=== PATIENT | male | born 1955 | race Hispanic/Latino ===

== ENCOUNTER 2016-08-30 15:37 | Inpatient (IN) | payer SELFPAY ==
[2016-08-30 16:19] LABS: Anion Gap 19 mmol/L; BUN/Creatinine Ratio 33.33; Blood Urea Nitrogen 30 mg/dL (9-20); Carbon Dioxide 25 mmol/L (22-30); Chloride 92.5 mmol/L (98-107); Glucose 124 mg/dL (75-100); Potassium 4.2 mmol/L (3.6-5.0); Sodium 132 mmol/L (137-145)
[2016-08-30 16:28] LABS: Hematocrit 40.7 % (35.5-45.6); Hemoglobin 13.9 gm/dl (11.8-15.2); Mean Corpuscular HGB Conc 34 % (32-34); Mean Corpuscular Hemoglobin 31 pg (28-32); Mean Corpuscular Volume 92 fl (84-94); Platelet Count 248 K/mm3 (140-440); Red Blood Count 4.41 M/mm3 (3.65-5.03); Red Cell Distribution Width 14.2 % (13.2-15.2)
[2016-08-30 16:41] LABS: White Blood Count 24.6 K/mm3 (4.5-11.0)
[2016-08-30 16:52] LABS: Bacteria,Urine 1+ /HPF (Negative); Bilirubin,Urine NEG (Negative); Blood,Urine NEG (Negative); Ketones,Urine NEG (Negative); Leukocyte Esterase,Urine NEG (Negative); Mucus,Urine 1+ /HPF; Nitrite,Urine NEG (Negative)
[2016-08-30] MEDS ORDERED: NACL 0.9% 1000 ML 1,000 ML IV ONE (17:42)
[2016-08-30] MEDS ORDERED: VANCOMYCIN/NS 1 GM/250 ML 1 GM/250 ML BAG IV ONE (17:42)
[2016-08-30 17:46] LABS: Blastocytes % (Manual) 0 %
[2016-08-30 17:47] LABS: Diff Status Complete; Eosinophils % (Manual) 0 % (0.0-4.3); Large Platelets Few; Platelet Estimate Consistent w Auto; RBC Morphology Normal
[2016-08-30] MEDS ORDERED: MORPHINE IV ONE (17:49)
--- NOTE | 2016-08-30 17:50 | Emergency Department Report ---
ED Lower Extremity HPI - General Chief Complaint: Extremity Injury, Lower Stated Complaint: POSS SPIDER BITE LEG Time Seen by Provider: 08/30/16 17:25 Source: patient Mode of arrival: Ambulatory Limitations: No Limitations - History of Present Illness Initial Comments: 61-year-old male with no past medical history presenting today because of left leg pain and swelling. Patient states that this started approximately 5 days ago. Thinks that there may have been a spider bite involved but did not see any. Initially was small spot on the left proximal lateral aspect of the knee and has now spread to redness going down his leg to his ankle and up his thigh as well as spontaneous drainage from the original site. Denies any fevers or chills. Has not seen a doctor in many years. Some difficulty ambulating due to the pain. No numbness or weakness - Related Data Home Medications Medication Instructions Recorded Confirmed Last Taken No Known Home Medications [No 08/30/16 08/30/16 Unknown Reported Home Medications] Allergies Allergy/AdvReac Type Severity Reaction Status Date / Time Sulfa (Sulfonamide Allergy Swelling Verified 08/30/16 15:44 Antibiotics) ED Review of Systems ROS: Stated complaint: POSS SPIDER BITE LEG Other details as noted in HPI Comment: All other systems reviewed and negative Constitutional: denies: chills, fever Respiratory: denies: cough Cardiovascular: denies: chest pain Gastrointestinal: denies: abdominal pain, vomiting Genitourinary: denies: dysuria Skin: rash Neurological: denies: headache Psychiatric: denies: anxiety ED Past Medical Hx - Past Medical History Previous Medical History?: Yes Additional medical history: heart murmur - Surgical History Past Surgical History?: No - Social History Smoking Status: Current Every Day Smoker Substance Use Type: Non Opiate Pain - Medications Home Medications: Home Medications Medication Instructions Recorded Confirmed Last Taken Type No Known Home Medications [No 08/30/16 08/30/16 Unknown History Reported Home Medications] ED Physical Exam - General Limitations: No Limitations General appearance: alert - Head Head exam: Present: atraumatic - ENT ENT exam: Present: normal exam - Respiratory Respiratory exam: Present: normal lung sounds bilaterally. Absent: respiratory distress - Cardiovascular Cardiovascular Exam: Present: regular rate, normal rhythm - GI/Abdominal GI/Abdominal exam: Present: soft. Absent: distended, tenderness - Extremities Exam Extremities exam: Present: tenderness, other (left leg shows diffuse erythema and warmth and tenderness around the knee with a small area of discharge just proximal and lateral to the knee, there is erythema and warmth going down the medial aspect of the leg to the ankle and up half way to the thigh, sensation is intact distally, capillary refill is less than 2 seconds, DP and PT pulse 2+ , is able to move the knee but has significant pain with ambulating) - Neurological Exam Neurological exam: Present: alert, oriented X3. Absent: motor sensory deficit - Psychiatric Psychiatric exam: Present: normal affect ED Course Vital Signs 08/30/16 08/30/16 08/30/16 15:45 17:15 17:40 Temperature 98.9 F 98.2 F Pulse Rate 100 H 85 Respiratory 18 18 15 Rate Blood Pressure 110/71 Blood Pressure 118/71 [Left] O2 Sat by Pulse 99 98 Oximetry 08/30/16 08/30/16 19:21 20:41 Temperature 98.2 F 98 F Pulse Rate 102 H 88 Respiratory 18 18 Rate Blood Pressure Blood Pressure 137/79 122/75 [Left] O2 Sat by Pulse 98 98 Oximetry - Consultations Consultation #1: 08/30/16 19:[address] Allison, orthopedic surgeon on-call, explained the presentation and exam and labs,'s states that he will evaluate the patient tomorrow inpatient Consultation #2: 08/30/16 19:[address] Chavez, will admit patient ED Lower Extremity MDM - Lab Data Result diagrams: 09/01/16 07:42 09/01/16 07:42 - Medical Decision Making Although the possibility of septic joint is considered, this appears to be more consistent with a given that the start of the infection was from a small nidus away from the knee joint and the patient is able to flex and extend the knee without severe pain. Orthopedic surgery was consulted and will see the patient tomorrow morning. Critical care attestation.: If time is entered above; I have spent that time in minutes in the direct care of this critically ill patient, excluding procedure time. ED Disposition Clinical Impression: Cellulitis and abscess of left leg Disposition: OP ADMITTED IP TO THIS HOSP Is pt being admited?: No Does the pt Need Aspirin: No Condition: Serious
[2016-08-30 18:29] LABS: INR 1.29 (0.87-1.13); Partial Thromboplastin Time 31.5 Sec. (24.2-36.6)
[2016-08-30] MEDS ORDERED: MAXIPIME/NS 2 GM/100 ML 2 GM/100 ML BAG IV ONE (18:50)
[2016-08-30] MEDS ORDERED: VANCOMYCIN PHARMACY TO DOSE IV SCH (23:00)
[2016-08-30] MEDS ORDERED: AMBIEN PO PRN (23:03)
[2016-08-30] MEDS ORDERED: MILK OF MAGNESIA PO PRN (23:03)
[2016-08-30] MEDS ORDERED: DULCOLAX PR PRN (23:03)
[2016-08-30] MEDS ORDERED: ZOFRAN IV PRN (23:03)
[2016-08-30] MEDS ORDERED: TYLENOL PO PRN (23:03)
--- NOTE | 2016-08-30 23:06 | Event Note ---
Date: 08/30/16 See H/p in reports L knee cellulitis
[2016-08-31] MEDS: UNASYN/NS 3 GM/100 ML 3 GM/100 ML BAG IV SCH ×4 (00:19→18:23)
--- NOTE | 2016-08-31 01:17 | History and Physical Report ---
CHIEF COMPLAINT: Left leg pain and left knee swelling and redness extending from the ankle to the mid thigh. HISTORY OF PRESENT ILLNESS: This is a 61-year-old male with no significant past medical history, comes in for left knee pain and left leg swelling from ankle up to the left mid thigh associated with redness. Low grade fever present. Appears to be a spiderbite. There is a small spot on the left lateral aspect of the knee. ____ spider bite. Spontaneous drainage from the original site. No fever, no chills. He has not seen a doctor in many years. PAST MEDICAL HISTORY: heart murmur. PAST SURGICAL HISTORY: None. SOCIAL HISTORY: Smokes about a pack a day. MEDICATION: Nonopioid pain medicines. FAMILY HISTORY: No significant family history. REVIEW OF SYSTEMS: Significant for; CONSTITUTIONAL: Low grade fever. No weight loss, no weight gain. HEENT: No sore throat. No postnasal drip. CARDIOVASCULAR AND RESPIRATORY: No shortness of breath, no chest pain, no palpitations. GASTROINTESTINAL: No nausea, no vomiting, no diarrhea. GENITOURINARY SYSTEM: No dysuria, no flank pain. MUSCULOSKELETAL: There is redness on the left knee extending up to the ankle and the mid thigh. There is a small drainage site on the lateral aspect of the left knee. SKIN: As mentioned in the description of the extremities. Redness and swelling of the left knee and left lower extremity from mid thigh to the left ankle. CENTRAL NERVOUS SYSTEM: No syncope, no seizures. PSYCHIATRIC: No depression. HEMATOLOGIC AND LYMPHATIC: No bruising, no lymphedema. A 14-point review of systems done. PHYSICAL EXAMINATION: GENERAL: Elderly male, cooperative during examination. VITAL SIGNS: Significant for temperature 98.2, pulse of 85, respirations of 15, blood pressure of 118/71. A well developed, well-nourished male. HEENT: No postnasal drip. No redness of the posterior pharynx. NECK: Supple, no lymphadenopathy, no thyromegaly. LUNGS: Clear to auscultation and percussion. Good air entry. CARDIOVASCULAR: S1, S2 heard. No gallop, no murmur, no rub. Apical impulse in left fifth intercostal space and midclavicular line. ABDOMEN: Soft and benign. No hepatosplenomegaly. No guarding, no rigidity. Hernial orifices are normal. EXTREMITIES: Good pedal pulses. No pedal edema. CENTRAL NERVOUS SYSTEM: Alert and oriented x 4, nonfocal exam. SKIN: Normal. Left lower extremity redness and swelling of the left lower extremity present extending from the mid thigh to the ankle. More redness in left knee ____. Nonfluctuant. Skin indurated. Small drainage site present. LABORATORY DATA: White count is 24,000, H and H is 13.9 and 40.7, sodium is 132, potassium is 4.2. C-reactive protein is 30.30. Urine is negative. ASSESSMENT AND PLAN: 1. Left knee cellulitis. The patient is started on IV vancomycin and IV Unasyn. Does not need drainage. Ortho surgeon consulted. The patient may need an MRI of the knee down the road. At this point, the impression is limited to the skin and subcutaneous tissue. No joint involvement. Orthopedic consult from Dr. Allison requested. Dilaudid and Zofran p.r.n. for pain. 2. Nicotine dependence. Nicotine patch ordered. 3. Deep venous thrombosis prophylaxis, Lovenox 40 mg subcutaneous daily ordered. JOB# [id number] VSMeek/EARLE
[2016-08-31] MEDS: VANCOMYCIN 750 MG in NACL 0.9% 250ML 250 ML IV SCH ×2 (07:11→19:20)
--- NOTE | 2016-08-31 07:11 | XRay Report ---
Left femur 2 views: History: Redness and warmth. Soft tissue infection. Findings: No periosteal reaction, lytic lesion, fracture or soft tissue calcification. Impression: No bony abnormality.
--- NOTE | 2016-08-31 07:12 | XRay Report ---
Left tibia fibula 2 views: History: Redness warmth and soft tissue infection. Findings: No periosteal reaction, lytic lesion fracture or soft tissue calcification. Impression: No bony abnormality.
--- NOTE | 2016-08-31 07:30 | Admit Criteria Form ---
Admission Criteria Documentation: CELLULITIS Clinical Indications for Admission to Inpatient Care (Place 'X' for any and all applicable criteria): Admission is indicated for ANY ONE of the following(1)(2)(3)(4)(5): [ ]I. Limb-threatening infection [ ]II. High-risk comorbid condition as indicated by ANY ONE of the following: [ ]a) Uncontrolled diabetes (eg, HbA1c greater than 10% (0.1)) [ ]b) Cirrhosis [ ]c) Neutropenia [ ]d) Asplenia [ ]e) Immunosuppression [ ]f) Symptomatic heart failure [ ]III. Failure of outpatient therapy as indicated by ALL of the following: [ ]a) Progression or no improvement after adequate trial (minimum of 48 hours, with longer period for stable lower extremity infection) [ ]b) Adequate antibiotic regimen as indicated by use of ANY ONE of the following: [ ]i) First-generation cephalosporin (e.g., cephalexin) [ ]ii) Antistaphylococcal penicillin (e.g., dicloxacillin) [ ]iii) Penicillin-allergic patient regimen (clindamycin, extended-spectrum fluoroquinolone, or doxycycline) [ ]iv) Resistant organism (eg, methicillin-resistant Staphylococcus aureus) regimen (6) [ ]c) Outpatient intravenous therapy regimen is not appropriate due to ANY ONE of the following. (7)(8)(9)(10): [ ]i) It was tried and was not successful (eg, progression of infection). [ ]ii) It is not available or cannot be arranged in a clinically appropriate time frame (e.g., the next day). [ ]iii) Clinical presentation (eg, acuity of infection, rapidity of progression, confirmed or suspected bacteremia) is judged to require ALL of the following: [ ]1) Immediate initiation of intravenous therapy ( eg, cannot wait for next day) [ ]2) Intensity of patient monitoring and observation (eg, vital sign measurement, checks for infection progression) that cannot be provided at other than inpatient level of care [ ]IV. Mental status changes [ ]V. Bacteremia [ ]. Hemodynamic instability [ ]VII. Suspected necrotizing soft tissue infection (e.g., gas in tissue)(11)( 12) [ ]VIII. Orbital infection (13)(14) [ ]IX. Associated surgical procedure (e.g., abscess drainage, debridement) not amenable to outpatient, emergency department, or observation care [ ]X. Cutaneous gangrene [ ]XI. High fever (temperature greater than 39.5 degrees C (103.1 degrees F) (oral)) not responsive to outpatient, emergency department, or observation care therapy [X ]XIII. Inpatient admission required rather than observation care (Also use Cellulitis: Observation Care as appropriate) because of ANY ONE of the following : [ ]a) Periorbital or perineal infection that is severe or worsening [ ]b) Severe pain requiring acute inpatient management [ ]c) IV fluid to replace significant ongoing (e.g., for over 24 hours) losses (greater than 3L/m2 per day) [ ]d) Compartment syndrome monitoring (17) [ ]e) Strict or protective (eg, laminar flow) isolation [ ]f) Urgent debridement or skin grafting [ ]g) Bone or joint debridement [ ]h) Immediate inpatient surgery [X ]i) Other condition, treatment or monitoring requiring inpatient admission Extended stay beyond goal length of stay may be needed for (1)(18): [ ]a) Necrotizing soft tissue infection or fasciitis [ ]b) Gram-negative infection [ ]c) Methicillin-resistant Staphylococcal aureus (MRSA) infection [ ]d) Peripheral venous insufficiency with cellulitis [ ]e) Extensive edema [ ]f) Sepsis or continued Hemodynamic instability [ ]g) Continued high fever or mental status change [ ]h) Bacteremia [ ]i) Active serious comorbid conditions ( eg, heart failure, renal insufficiency) The original [employer] [employer] content created by [employer] has been revised. The portions of the content which have been revised are identified through the use of italic text or in bold, and [facility] has neither reviewed nor approved the modified material. All other unmodified content is copyright [facility] [employer] Please see references footnoted in the original [facility] xiao qu [employer] you edition 2016 Admission Criteria Met: Yes
[2016-08-31 07:45] LABS: Basophils % (Auto) 0.4 % (0.0-1.8); Eosinophils % (Auto) 0.3 % (0.0-4.3); Hematocrit 38.6 % (35.5-45.6); Hemoglobin 13.1 gm/dl (11.8-15.2); Mean Corpuscular HGB Conc 34 % (32-34); Mean Corpuscular Hemoglobin 31 pg (28-32); Mean Corpuscular Volume 92 fl (84-94); Platelet Count 193 K/mm3 (140-440); Red Blood Count 4.18 M/mm3 (3.65-5.03); Red Cell Distribution Width 14.5 % (13.2-15.2); White Blood Count 15.8 K/mm3 (4.5-11.0)
[2016-08-31 08:12] LABS: Alanine Aminotransferase 27 units/L (7-56); Albumin 3.1 g/dL (3.9-5); Alkaline Phosphatase 70 units/L (35-129); Anion Gap 17 mmol/L; BUN/Creatinine Ratio 22.85; Blood Urea Nitrogen 16 mg/dL (9-20); Calcium 8.5 mg/dL (8.4-10.2); Carbon Dioxide 25 mmol/L (22-30); Chloride 100.8 mmol/L (98-107); Glucose 99 mg/dL (75-100); Potassium 4.1 mmol/L (3.6-5.0); Total Protein 6.1 g/dL (6.3-8.2)
[2016-08-31 08:24] LABS: Sodium 139 mmol/L (137-145)
--- NOTE | 2016-08-31 08:57 | Progress Note ---
Assessment and Plan Assessment and plan: Cellulitis left knee. May have been initiated by insect or spider bite, since patient felt something bite him in knee. Continue Unasyn and Vancomycin. Ortho following. Hyponatremia. Sodium was 132 on admission now up to 139. Start NS iv fluid Malnutrition. Consult Lace Finisher. BMI only 15.4 DVT Prophylaxis with Lovenox subcut Full code status History Interval history: left knee pain,redness Hospitalist Physical - Physical exam Narrative exam: Gen: Appearance: Not in acute distress, HEENT: Normocephalic, atraumatic Neck: supple, No JVD Lungs : Clear, no crackles, no wheeze Heart :S1-S2 regular, no murmurs, rubs or gallop Abdomen: soft, non tender, non-distended,normal bowel sounds Extremities: Erythema, tenderness over left knee, Neuro: Awake, alert, oriented 3, no focal neurological signs Psych: Normal mood - Constitutional Vitals: Temp Pulse Resp BP Pulse Ox 98.9 F 94 H 18 131/70 98 08/31/16 08:00 08/31/16 08:00 08/31/16 08:00 08/31/16 08:00 08/31/16 08:00 Results - Labs CBC & Chem 7: 08/31/16 07:29 08/31/16 07:29 Labs: Laboratory Last Values WBC 15.8 K/mm3 (4.5-11.0) H 08/31/16 07:29 RBC 4.18 M/mm3 (3.65-5.03) 08/31/16 07:29 Hgb 13.1 gm/dl (11.8-15.2) 08/31/16 07:29 Hct 38.6 % (35.5-45.6) 08/31/16 07:29 MCV 92 fl (84-94) 08/31/16 07:29 MCH 31 pg (28-32) 08/31/16 07:29 MCHC 34 % (32-34) 08/31/16 07:29 RDW 14.5 % (13.2-15.2) 08/31/16 07:29 Plt Count 193 K/mm3 (140-440) 08/31/16 07:29 Lymph % (Auto) 5.9 % (13.4-35.0) L 08/31/16 07:29 Duval % (Auto) 7.7 % (0.0-7.3) H 08/31/16 07:29 Eos % (Auto) 0.3 % (0.0-4.3) 08/31/16 07: Baso % (Auto) 0.4 % (0.0-1.8) 08/31/16 07:29 Lymph # 0.9 K/mm3 (1.2-5.4) L 08/31/16 07:29 Duval # 1.2 K/mm3 (0.0-0.8) H 08/31/16 07:29 Eos # 0.1 K/mm3 (0.0-0.4) 08/31/16 07: Baso # 0.1 K/mm3 (0.0-0.1) 08/31/16 07:29 Add Manual Diff Complete 08/30/16 15:52 Total Counted 100 08/30/16 15:52 Seg Neutrophils % 85.7 % (40.0-70.0) H 08/31/16 07:29 Seg Neuts % (Manual) 87.0 % (40.0-70.0) H 08/30/16 15:52 Band Neutrophils % 0 % 08/30/16 15:52 Lymphocytes % (Manual) 5.0 % (13.4-35.0) L 08/30/16 15:52 Reactive Lymphs % (Man) 0 % 08/30/16 15:52 Monocytes % (Manual) 8.0 % (0.0-7.3) H 08/30/16 15:52 Eosinophils % (Manual) 0 % (0.0-4.3) 08/30/16 15:52 Metamyelocytes % 0 % 08/30/16 15:52 Myelocytes % 0 % 08/30/16 15:52 Promyelocytes % 0 % 08/30/16 15:52 Blast Cells % 0 % 08/30/16 15:52 Nucleated RBC % Not Reportable 08/30/16 15:52 Seg Neutrophils # 13.5 K/mm3 (1.8-7.7) H 08/31/16 07:29 Seg Neutrophils # Man 21.4 K/mm3 (1.8-7.7) H 08/30/16 15:52 Band Neutrophils # 0.0 K/mm3 08/30/16 15:52 Lymphocytes # (Manual) 1.2 K/mm3 (1.2-5.4) 08/30/16 15:52 Abs React Lymphs (Man) 0.0 K/mm3 08/30/16 15:52 Monocytes # (Manual) 2.0 K/mm3 (0.0-0.8) H 08/30/16 15:52 Eosinophils # (Manual) 0.0 K/mm3 (0.0-0.4) 08/30/16 15:52 Basophils # (Manual) 0.0 K/mm3 (0.0-0.1) 08/30/16 15:52 Metamyelocytes # 0.0 K/mm3 08/30/16 15:52 Myelocytes # 0.0 K/mm3 08/30/16 15:52 Promyelocytes # 0.0 K/mm3 08/30/16 15:52 Blast Cells # 0.0 K/mm3 08/30/16 15:52 WBC Morphology Not Reportable 08/30/16 15:52 Hypersegmented Neuts Not Reportable 08/30/16 15:52 Hyposegmented Neuts Not Reportable 08/30/16 15:52 Hypogranular Neuts Not Reportable 08/30/16 15:52 Smudge Cells Not Reportable 08/30/16 15:52 Toxic Granulation Not Reportable 08/30/16 15:52 Toxic Vacuolation Not Reportable 08/30/16 15:52 Dohle Bodies Not Reportable 08/30/16 15:52 Pelger-Huet Anomaly Not Reportable 08/30/16 15:52 Yesy Rods Not Reportable 08/30/16 15:52 Platelet Estimate Consistent w auto 08/30/16 15:52 Clumped Platelets Not Reportable 08/30/16 15:52 Plt Clumps, EDTA Not Reportable 08/30/16 15:52 Large Platelets Few 08/30/16 15:52 Giant Platelets Not Reportable 08/30/16 15:52 Platelet Satelliting Not Reportable 08/30/16 15:52 Plt Morphology Comment Not Reportable 08/30/16 15:52 RBC Morphology Normal 08/30/16 15:52 Dimorphic RBCs Not Reportable 08/30/16 15:52 Polychromasia Not Reportable 08/30/16 15:52 Hypochromasia Not Reportable 08/30/16 15:52 Poikilocytosis Not Reportable 08/30/16 15:52 Anisocytosis Not Reportable 08/30/16 15:52 Microcytosis Not Reportable 08/30/16 15:52 Macrocytosis Not Reportable 08/30/16 15:52 Spherocytes Not Reportable 08/30/16 15:52 Pappenheimer Bodies Not Reportable 08/30/16 15:52 Sickle Cells Not Reportable 08/30/16 15:52 Target Cells Not Reportable 08/30/16 15:52 Tear Drop Cells Not Reportable 08/30/16 15:52 Ovalocytes Not Reportable 08/30/16 15:52 Helmet Cells Not Reportable 08/30/16 15:52 [place] Bodies Not Reportable 08/30/16 15:52 Wever Rings Not Reportable 08/30/16 15:52 Yolanda Cells Not Reportable 08/30/16 15:52 Bite Cells Not Reportable 08/30/16 15:52 Crenated Cell Not Reportable 08/30/16 15:52 Elliptocytes Not Reportable 08/30/16 15:52 Acanthocytes (Spur) Not Reportable 08/30/16 15:52 Rouleaux Not Reportable 08/30/16 15:52 Hemoglobin C Crystals Not Reportable 08/30/16 15:52 Schistocytes Not Reportable 08/30/16 15:52 Malaria parasites Not Reportable 08/30/16 15:52 ESR 13 mm/Hr (0-20) 08/30/16 17:56 Jose Bodies Not Reportable 08/30/16 15:52 Hem Pathologist Commnt No 08/30/16 15:52 PT 16.0 Sec. (12.2-14.9) H 08/30/16 17:56 INR 1.29 (0.87-1.13) H 08/30/16 17:56 APTT 31.5 Sec. (24.2-36.6) 08/30/16 17:56 Sodium 139 mmol/L (137-145) D 08/31/16 07:29 Potassium 4.1 mmol/L (3.6-5.0) 08/31/16 07:29 Chloride 100.8 mmol/L (98-107) 08/31/16 07:29 Carbon Dioxide 25 mmol/L (22-30) 08/31/16 07:29 Anion Gap 17 mmol/L 08/31/16 07:29 BUN 16 mg/dL (9-20) 08/31/16 07:29 Creatinine 0.7 mg/dL (0.8-1.5) L 08/31/16 07:29 Estimated GFR > 60 ml/min 08/31/16 07:29 BUN/Creatinine Ratio 22.85 % 08/31/16 07:29 Glucose 99 mg/dL (75-100) 08/31/16 07:29 Hemoglobin A1c 5.2 % (4-6) 08/30/16 23:44 Lactic Acid 1.80 mmol/L (0.7-2.0) 08/30/16 17:56 Calcium 8.5 mg/dL (8.4-10.2) 08/31/16 07:29 Total Bilirubin 0.50 mg/dL (0.1-1.2) 08/31/16 07:29 AST 30 units/L (5-40) 08/31/16 07:29 ALT 27 units/L (7-56) 08/31/16 07:29 Alkaline Phosphatase 70 units/L (35-129) 08/31/16 07:29 C-Reactive Protein 30.30 mg/dL (0.00-1.30) H 08/30/16 17:56 Total Protein 6.1 g/dL (6.3-8.2) L 08/31/16 07:29 Albumin 3.1 g/dL (3.9-5) L 08/31/16 07:29 Albumin/Globulin Ratio 1.0 % 08/31/16 07:29 Urine Color Mary (Yellow) 08/30/16 16:05 Urine Turbidity Clear (Clear) 08/30/16 16:05 Urine pH 5.0 (5.0-7.0) 08/30/16 16:05 Ur Specific [place] 1.024 (1.003-1.030) 08/30/16 16:05 Urine Protein 30 mg/dl mg/dL (Negative) 08/30/16 16:05 Urine Glucose (UA) Neg mg/dL (Negative) 08/30/16 16:05 Urine Ketones Neg mg/dL (Negative) 08/30/16 16:05 Urine Blood Neg (Negative) 08/30/16 16:05 Urine Nitrite Neg (Negative) 08/30/16 16:05 Urine Bilirubin Neg (Negative) 08/30/16 16:05 Urine Urobilinogen 2.0 mg/dL (<2.0) 08/30/16 16:05 Ur Leukocyte Esterase Neg (Negative) 08/30/16 16:05 Urine WBC (Auto) 3.0 /HPF (0.0-6.0) 08/30/16 16:05 Urine RBC (Auto) 2.0 /HPF (0.0-6.0) 08/30/16 16:05 U Epithel Cells (Auto) 1.0 /HPF (0-13.0) 08/30/16 16:05 Urine Bacteria (Auto) 1+ /HPF (Negative) 08/30/16 16:05 Urine Mucus 1+ /HPF 08/30/16 16:05
[2016-08-31] MEDS: HABITROL TD SCH (10:23)
[2016-08-31] MEDS: PEPCID PO SCH ×2 (10:23→21:00)
[2016-08-31] MEDS: DILAUDID IV PRN ×2 (10:34→20:55)
--- NOTE | 2016-08-31 11:09 | Consultation ---
History of Present Illness - HPI Consult date: 08/31/16 Consult reason: joint pain History of present illness: 61 y/o male with c/o left knee pain and swelling x 5 days, states believe bitten by spider recently able to weight bear but painful.... Medications and Allergies Allergies Allergy/AdvReac Type Severity Reaction Status Date / Time Sulfa (Sulfonamide Allergy Swelling Verified 08/30/16 15:44 Antibiotics) Home Medications Medication Instructions Recorded Confirmed Last Taken Type No Known Home Medications [No 08/30/16 08/30/16 Unknown History Reported Home Medications] Active Meds: Active Medications Acetaminophen (Tylenol) 650 mg PO Q4H PRN PRN Reason: Pain MILD(1-3)/Fever >100.5/PATTERSON Bisacodyl (Dulcolax) 10 mg MD QDAY PRN PRN Reason: Constipation unrelieved by MOM Enoxaparin Sodium (Lovenox) 40 mg SUB-Q QDAY@2200 COUNT INCLUDES THE [facility] Famotidine (Pepcid) 20 mg PO BID COUNT INCLUDES THE [facility] Last Admin: 08/31/16 10:23 Dose: 20 mg Hydromorphone HCl (Dilaudid) 1 mg IV Q3H PRN PRN Reason: Pain , Severe (7-10) Last Admin: 08/31/16 10:34 Dose: 1 mg Ampicillin Sodium/Sulbactam Sodium (Unasyn/Ns 3 Gm/100 Ml) 3 gm in 100 mls @ 100 mls/hr IV Q6HR COUNT INCLUDES THE [facility] PRN Reason: Protocol Last Admin: 08/31/16 06:11 Dose: 100 mls/hr Vancomycin HCl 750 mg/ Sodium (Chloride) 265 mls @ 176.667 mls/hr IV Q12H COUNT INCLUDES THE [facility] Last Admin: 08/31/16 07:11 Dose: 176.667 mls/hr Magnesium Hydroxide (Milk Of Magnesia) 30 ml PO Q4H PRN PRN Reason: Constipation Nicotine (Habitrol) 21 mg TD QDAY COUNT INCLUDES THE [facility] Last Admin: 08/31/16 10:23 Dose: 21 mg Ondansetron HCl (Zofran) 4 mg IV Q8H PRN PRN Reason: N/V unrelieved by Reglan Oxycodone/Acetaminophen (Percocet 5/325) 1 tab PO Q6H PRN PRN Reason: Pain, Moderate (4-6) Vancomycin HCl (Vancomycin Pharmacy To Dose) 1 each IV PKCONSULT GERHARD PRN Reason: Protocol Zolpidem Tartrate (Ambien) 5 mg PO QHS PRN PRN Reason: Insomnia Physical Examination - Physical exam Narrative exam: alert and awake oriented x 3 significant physical exam relates to the left lower extremity, here noted to have redness/erythema to distal thigh with small granulating wound over distal femur, good passive ROM at knee joint, no effusion noted Assessment and Plan Assessment - cellulitits left thigh doubt intra-articular involvement Recommendation- continue IVAB and observation
[2016-08-31] MEDS: PERCOCET 5/325 PO PRN (14:40)
[2016-08-31] MEDS: NACL 0.9% 1000 ML 1,000 ML IV SCH (18:24)
[2016-08-31] MEDS: LOVENOX SUB-Q SCH (21:00)
[2016-09-01] MEDS: UNASYN/NS 3 GM/100 ML 3 GM/100 ML BAG IV SCH ×4 (00:57→17:03)
[2016-09-01] MEDS: DILAUDID IV PRN (06:21)
[2016-09-01 08:33] LABS: Blood Urea Nitrogen 10 mg/dL (9-20); Calcium 8.4 mg/dL (8.4-10.2); Carbon Dioxide 26 mmol/L (22-30); Glucose 103 mg/dL (75-100)
[2016-09-01 08:34] LABS: Anion Gap 17 mmol/L; Sodium 140 mmol/L (137-145)
[2016-09-01 08:38] LABS: Hemoglobin 12.8 gm/dl (11.8-15.2); Mean Corpuscular HGB Conc 34 % (32-34); Mean Corpuscular Hemoglobin 31 pg (28-32); Mean Corpuscular Volume 93 fl (84-94); Platelet Count 190 K/mm3 (140-440); Red Blood Count 4.09 M/mm3 (3.65-5.03); Red Cell Distribution Width 14.2 % (13.2-15.2)
[2016-09-01] MEDS: VANCOMYCIN 750 MG in NACL 0.9% 250ML 250 ML IV SCH ×2 (08:45→17:02)
[2016-09-01] MEDS: HABITROL TD SCH (09:29)
[2016-09-01] MEDS: PEPCID PO SCH ×2 (09:30→21:42)
[2016-09-01] MEDS: PERCOCET 5/325 PO PRN ×2 (09:48→17:01)
--- NOTE | 2016-09-01 13:56 | Progress Note ---
Assessment and Plan Assessment and plan: 61 year old with no significant past medical hx except for Tobacco abuse, Presents to ER with left knee cellulitis * Cellulites left knee. May have been initiated by insect or spider bite, since patient felt something bite him in knee. Continue Unasyn and Vancomycin. Ortho noted, no intervention, wound packing in place ?drug abuse- spouse also admitted. * Hypovolemic Hyponatremia. Sodium was 132 on admission now up to 139. Continue fluids now resolved * Mild Malnutrition. Consult [place]. BMI only 15.4 * Tobacco abuse: Extensive counselling greater than 15 mins provided with * DVT Prophylaxis with Lovenox subcut * Full code status History Interval history: Patient seen and examined today and in no acute distress. Reports some improvement in the Knee. No new event reported by Nursing staff. Hospitalist Physical - Physical exam Narrative exam: VITAL SIGNS: Reviewed. GENERAL: The patient appeared well nourished and normally developed. Vital signs as documented. HEAD: No signs of head trauma. EYES: Pupils are equal. Extraocular motions intact. EARS: Hearing grossly intact. MOUTH: Oropharynx is normal. NECK: No adenopathy, no JVD. CHEST: Chest with clear breath sounds bilaterally. No wheezes, rales, or rhonchi. CARDIAC: Regular rate and rhythm. S1 and S2, without murmurs, gallops, or rubs. VASCULAR: No Edema. Peripheral pulses normal and equal in all extremities. ABDOMEN: Soft, without detectable tenderness. No sign of distention. No rebound or guarding, and no masses palpated. Bowel Sounds normal. MUSCULOSKELETAL: Good range of motion of all major joints. Left knee erythema treading to the thigh tender, no drainage. Extremities without clubbing, cyanosis or edema. NEUROLOGIC EXAM: Alert and oriented x 3. No focal sensory or strength deficits. Speech normal. Follows commands. PSYCHIATRIC: Mood normal. SKIN: left knee - Constitutional Vitals: Temp Pulse Resp BP Pulse Ox 98.4 F 93 H 19 140/75 98 09/01/16 07:00 09/01/16 07:00 09/01/16 07:00 09/01/16 07:00 09/01/16 07:00 Results - Labs CBC & Chem 7: 09/01/16 07:42 09/01/16 07:42 Labs: Laboratory Last Values WBC 14.0 K/mm3 (4.5-11.0) H 09/01/16 07:42 RBC 4.09 M/mm3 (3.65-5.03) 09/01/16 07:42 Hgb 12.8 gm/dl (11.8-15.2) 09/01/16 07:42 Hct 38.0 % (35.5-45.6) 09/01/16 07:42 MCV 93 fl (84-94) 09/01/16 07:42 MCH 31 pg (28-32) 09/01/16 07:42 MCHC 34 % (32-34) 09/01/16 07:42 RDW 14.2 % (13.2-15.2) 09/01/16 07:42 Plt Count 190 K/mm3 (140-440) 09/01/16 07:42 Lymph % (Auto) 5.9 % (13.4-35.0) L 08/31/16 07:29 [place] % (Auto) 7.7 % (0.0-7.3) H 08/31/16 07:29 Eos % (Auto) 0.3 % (0.0-4.3) 08/31/16 07:29 Baso % (Auto) 0.4 % (0.0-1.8) 08/31/16 07:29 Lymph # 0.9 K/mm3 (1.2-5.4) L 08/31/16 07:29 [place] # 1.2 K/mm3 (0.0-0.8) H 08/31/16 07:29 Eos # 0.1 K/mm3 (0.0-0.4) 08/31/16 07:29 Baso # 0.1 K/mm3 (0.0-0.1) 08/31/16 07:29 Add Manual Diff Complete 08/30/16 15:52 Total Counted 100 08/30/16 15:52 Seg Neutrophils % 85.7 % (40.0-70.0) H 08/31/16 07:29 Seg Neuts % (Manual) 87.0 % (40.0-70.0) H 08/30/16 15:52 Band Neutrophils % 0 % 08/30/16 15:52 Lymphocytes % (Manual) 5.0 % (13.4-35.0) L 08/30/16 15:52 Reactive Lymphs % (Man) 0 % 08/30/16 15:52 Monocytes % (Manual) 8.0 % (0.0-7.3) H 08/30/16 15:52 Eosinophils % (Manual) 0 % (0.0-4.3) 08/30/16 15:52 Metamyelocytes % 0 % 08/30/16 15:52 Myelocytes % 0 % 08/30/16 15:52 Promyelocytes % 0 % 08/30/16 15:52 Blast Cells % 0 % 08/30/16 15:52 Nucleated RBC % Not Reportable 08/30/16 15:52 Seg Neutrophils # 13.5 K/mm3 (1.8-7.7) H 08/31/16 07:29 Seg Neutrophils # Man 21.4 K/mm3 (1.8-7.7) H 08/30/16 15:52 Band Neutrophils # 0.0 K/mm3 08/30/16 15:52 Lymphocytes # (Manual) 1.2 K/mm3 (1.2-5.4) 08/30/16 15:52 Abs React Lymphs (Man) 0.0 K/mm3 08/30/16 15:52 Monocytes # (Manual) 2.0 K/mm3 (0.0-0.8) H 08/30/16 15:52 Eosinophils # (Manual) 0.0 K/mm3 (0.0-0.4) 08/30/16 15:52 Basophils # (Manual) 0.0 K/mm3 (0.0-0.1) 08/30/16 15:52 Metamyelocytes # 0.0 K/mm3 08/30/16 15:52 Myelocytes # 0.0 K/mm3 08/30/16 15:52 Promyelocytes # 0.0 K/mm3 08/30/16 15:52 Blast Cells # 0.0 K/mm3 08/30/16 15:52 WBC Morphology Not Reportable 08/30/16 15:52 Hypersegmented Neuts Not Reportable 08/30/16 15:52 Hyposegmented Neuts Not Reportable 08/30/16 15:52 Hypogranular Neuts Not Reportable 08/30/16 15:52 Smudge Cells Not Reportable 08/30/16 15:52 Toxic Granulation Not Reportable 08/30/16 15:52 Toxic Vacuolation Not Reportable 08/30/16 15:52 Dohle Bodies Not Reportable 08/30/16 15:52 Pelger-Huet Anomaly Not Reportable 08/30/16 15:52 Yesy Rods Not Reportable 08/30/16 15:52 Platelet Estimate Consistent w auto 08/30/16 15:52 Clumped Platelets Not Reportable 08/30/16 15:52 Plt Clumps, EDTA Not Reportable 08/30/16 15:52 Large Platelets Few 08/30/16 15:52 Giant Platelets Not Reportable 08/30/16 15:52 Platelet Satelliting Not Reportable 08/30/16 15:52 Plt Morphology Comment Not Reportable 08/30/16 15:52 RBC Morphology Normal 08/30/16 15:52 Dimorphic RBCs Not Reportable 08/30/16 15:52 Polychromasia Not Reportable 08/30/16 15:52 Hypochromasia Not Reportable 08/30/16 15:52 Poikilocytosis Not Reportable 08/30/16 15:52 Anisocytosis Not Reportable 08/30/16 15:52 Microcytosis Not Reportable 08/30/16 15:52 Macrocytosis Not Reportable 08/30/16 15:52 Spherocytes Not Reportable 08/30/16 15:52 Pappenheimer Bodies Not Reportable 08/30/16 15:52 Sickle Cells Not Reportable 08/30/16 15:52 Target Cells Not Reportable 08/30/16 15:52 Tear Drop Cells Not Reportable 08/30/16 15:52 Ovalocytes Not Reportable 08/30/16 15:52 Helmet Cells Not Reportable 08/30/16 15:52 Amaro-[place] Bodies Not Reportable 08/30/16 15:52 [place] Rings Not Reportable 08/30/16 15:52 Yolanda Cells Not Reportable 08/30/16 15:52 Bite Cells Not Reportable 08/30/16 15:52 Crenated Cell Not Reportable 08/30/16 15:52 Elliptocytes Not Reportable 08/30/16 15:52 Acanthocytes (Spur) Not Reportable 08/30/16 15:52 Rouleaux Not Reportable 08/30/16 15:52 Hemoglobin C Crystals Not Reportable 08/30/16 15:52 Schistocytes Not Reportable 08/30/16 15:52 Malaria parasites Not Reportable 08/30/16 15:52 ESR 13 mm/Hr (0-20) 08/30/16 17:56 Jose Bodies Not Reportable 08/30/16 15:52 Hem Pathologist Commnt No 08/30/16 15:52 PT 16.0 Sec. (12.2-14.9) H 08/30/16 17:56 INR 1.29 (0.87-1.13) H 08/30/16 17:56 APTT 31.5 Sec. (24.2-36.6) 08/30/16 17:56 Sodium 140 mmol/L (137-145) 09/01/16 07:42 Potassium 4.0 mmol/L (3.6-5.0) 09/01/16 07:42 Chloride 101.0 mmol/L (98-107) 09/01/16 07:42 Carbon Dioxide 26 mmol/L (22-30) 09/01/16 07:42 Anion Gap 17 mmol/L 09/01/16 07:42 BUN 10 mg/dL (9-20) 09/01/16 07:42 Creatinine 0.5 mg/dL (0.8-1.5) L 09/01/16 07:42 Estimated GFR > 60 ml/min 09/01/16 07:42 BUN/Creatinine Ratio 20.00 % 09/01/16 07:42 Glucose 103 mg/dL (75-100) H 09/01/16 07:42 Hemoglobin A1c 5.2 % (4-6) 08/30/16 23:44 Lactic Acid 1.80 mmol/L (0.7-2.0) 08/30/16 17:56 Calcium 8.4 mg/dL (8.4-10.2) 09/01/16 07:42 Total Bilirubin 0.50 mg/dL (0.1-1.2) 08/31/16 07:29 AST 30 units/L (5-40) 08/31/16 07:29 ALT 27 units/L (7-56) 08/31/16 07:29 Alkaline Phosphatase 70 units/L (35-129) 08/31/16 07:29 C-Reactive Protein 30.30 mg/dL (0.00-1.30) H 08/30/16 17:56 Total Protein 6.1 g/dL (6.3-8.2) L 08/31/16 07:29 Albumin 3.1 g/dL (3.9-5) L 08/31/16 07:29 Albumin/Globulin Ratio 1.0 % 08/31/16 07:29 Urine Color Mary (Yellow) 08/30/16 16:05 Urine Turbidity Clear (Clear) 08/30/16 16:05 Urine pH 5.0 (5.0-7.0) 08/30/16 16:05 Ur Specific [place] 1.024 (1.003-1.030) 08/30/16 16:05 Urine Protein 30 mg/dl mg/dL (Negative) 08/30/16 16:05 Urine Glucose (UA) Neg mg/dL (Negative) 08/30/16 16:05 Urine Ketones Neg mg/dL (Negative) 08/30/16 16:05 Urine Blood Neg (Negative) 08/30/16 16:05 Urine Nitrite Neg (Negative) 08/30/16 16:05 Urine Bilirubin Neg (Negative) 08/30/16 16:05 Urine Urobilinogen 2.0 mg/dL (<2.0) 08/30/16 16:05 Ur Leukocyte Esterase Neg (Negative) 08/30/16 16:05 Urine WBC (Auto) 3.0 /HPF (0.0-6.0) 08/30/16 16:05 Urine RBC (Auto) 2.0 /HPF (0.0-6.0) 08/30/16 16:05 U Epithel Cells (Auto) 1.0 /HPF (0-13.0) 08/30/16 16:05 Urine Bacteria (Auto) 1+ /HPF (Negative) 08/30/16 16:05 Urine Mucus 1+ /HPF 08/30/16 16:05
[2016-09-01] MEDS: NACL 0.9% 1000 ML 1,000 ML IV SCH (17:02)
[2016-09-01] MEDS: LOVENOX SUB-Q SCH (21:42)
[2016-09-02] MEDS: UNASYN/NS 3 GM/100 ML 3 GM/100 ML BAG IV SCH ×4 (01:24→17:55)
--- NOTE | 2016-09-02 08:03 | Progress Note ---
Assessment and Plan Assessment and plan: 61 year old with no significant past medical hx except for Tobacco abuse, Presents to ER with left knee cellulitis * Cellulites left knee possible septic bursitis. May have been initiated by insect or spider bite per pt. since patient felt something bite him in knee. Continue Unasyn and Vancomycin. Ortho noted, for surgical I and D today. We'll follow wound culture. continue IV abx, discuss with wound care about packing change. PAIN MANAGEMENT. * Hypovolemic Hyponatremia. Resolved. Sodium was 132 on admission. Continue IVF secondary to the cellulitis. * Mild Malnutrition. Consult Screening Unit Registered Nurse. BMI only 15.4 * Tobacco abuse: Extensive counselling greater than 15 mins provided with * DVT Prophylaxis with Lovenox subcut * Full code status History Interval history: Patient seen and examined today and in no acute distress.increased pain in knee last night, did not get restful sleep. No new event reported by Nursing staff. Hospitalist Physical - Physical exam Narrative exam: VITAL SIGNS: Reviewed. GENERAL: The patient appeared well nourished and normally developed. Vital signs as documented. HEAD: No signs of head trauma. EYES: Pupils are equal. Extraocular motions intact. EARS: Hearing grossly intact. MOUTH: Oropharynx is normal. NECK: No adenopathy, no JVD. CHEST: Chest with clear breath sounds bilaterally. No wheezes, rales, or rhonchi. CARDIAC: Regular rate and rhythm. S1 and S2, without murmurs, gallops, or rubs. VASCULAR: No Edema. Peripheral pulses normal and equal in all extremities. ABDOMEN: Soft, without detectable tenderness. No sign of distention. No rebound or guarding, and no masses palpated. Bowel Sounds normal. MUSCULOSKELETAL: Good range of motion of all major joints except left knee. steam drier tender . Left knee erythema within the skin marker made yesterday but more pronounced and much more fluctuance. Packing still in place.. Extremities without clubbing, cyanosis or edema. NEUROLOGIC EXAM: Alert and oriented x 3. No focal sensory or strength deficits. Speech normal. Follows commands. PSYCHIATRIC: Mood normal. SKIN: left knee - Constitutional Vitals: Temp Pulse Resp BP Pulse Ox 99.2 F 90 20 140/82 97 09/02/16 00:00 09/02/16 00:00 09/02/16 00:00 09/02/16 00:00 09/02/16 00:00 Results - Labs CBC & Chem 7: 09/01/16 07:42 09/01/16 07:42 Labs: Laboratory Last Values WBC 14.0 K/mm3 (4.5-11.0) H 09/01/16 07:42 RBC 4.09 M/mm3 (3.65-5.03) 09/01/16 07:42 Hgb 12.8 gm/dl (11.8-15.2) 09/01/16 07:42 Hct 38.0 % (35.5-45.6) 09/01/16 07:42 MCV 93 fl (84-94) 09/01/16 07:42 MCH 31 pg (28-32) 09/01/16 07:42 MCHC 34 % (32-34) 09/01/16 07:42 RDW 14.2 % (13.2-15.2) 09/01/16 07:42 Plt Count 190 K/mm3 (140-440) 09/01/16 07:42 Lymph % (Auto) 5.9 % (13.4-35.0) L 08/31/16 07:29 [place] % (Auto) 7.7 % (0.0-7.3) H 08/31/16 07:29 Eos % (Auto) 0.3 % (0.0-4.3) 08/31/16 07:29 Baso % (Auto) 0.4 % (0.0-1.8) 08/31/16 07:29 Lymph # 0.9 K/mm3 (1.2-5.4) L 08/31/16 07:29 [place] # 1.2 K/mm3 (0.0-0.8) H 08/31/16 07:29 Eos # 0.1 K/mm3 (0.0-0.4) 08/31/16 07:29 Baso # 0.1 K/mm3 (0.0-0.1) 08/31/16 07:29 Add Manual Diff Complete 08/30/16 15:52 Total Counted 100 08/30/16 15:52 Seg Neutrophils % 85.7 % (40.0-70.0) H 08/31/16 07:29 Seg Neuts % (Manual) 87.0 % (40.0-70.0) H 08/30/16 15:52 Band Neutrophils % 0 % 08/30/16 15:52 Lymphocytes % (Manual) 5.0 % (13.4-35.0) L 08/30/16 15:52 Reactive Lymphs % (Man) 0 % 08/30/16 15:52 Monocytes % (Manual) 8.0 % (0.0-7.3) H 08/30/16 15:52 Eosinophils % (Manual) 0 % (0.0-4.3) 08/30/16 15:52 Metamyelocytes % 0 % 08/30/16 15:52 Myelocytes % 0 % 08/30/16 15:52 Promyelocytes % 0 % 08/30/16 15:52 Blast Cells % 0 % 08/30/16 15:52 Nucleated RBC % Not Reportable 08/30/16 15:52 Seg Neutrophils # 13.5 K/mm3 (1.8-7.7) H 08/31/16 07:29 Seg Neutrophils # Man 21.4 K/mm3 (1.8-7.7) H 08/30/16 15:52 Band Neutrophils # 0.0 K/mm3 08/30/16 15:52 Lymphocytes # (Manual) 1.2 K/mm3 (1.2-5.4) 08/30/16 15:52 Abs React Lymphs (Man) 0.0 K/mm3 08/30/16 15:52 Monocytes # (Manual) 2.0 K/mm3 (0.0-0.8) H 08/30/16 15:52 Eosinophils # (Manual) 0.0 K/mm3 (0.0-0.4) 08/30/16 15:52 Basophils # (Manual) 0.0 K/mm3 (0.0-0.1) 08/30/16 15:52 Metamyelocytes # 0.0 K/mm3 08/30/16 15:52 Myelocytes # 0.0 K/mm3 08/30/16 15:52 Promyelocytes # 0.0 K/mm3 08/30/16 15:52 Blast Cells # 0.0 K/mm3 08/30/16 15:52 WBC Morphology Not Reportable 08/30/16 15:52 Hypersegmented Neuts Not Reportable 08/30/16 15:52 Hyposegmented Neuts Not Reportable 08/30/16 15:52 Hypogranular Neuts Not Reportable 08/30/16 15:52 Smudge Cells Not Reportable 08/30/16 15:52 Toxic Granulation Not Reportable 08/30/16 15:52 Toxic Vacuolation Not Reportable 08/30/16 15:52 Dohle Bodies Not Reportable 08/30/16 15:52 Pelger-Huet Anomaly Not Reportable 08/30/16 15:52 Yesy Rods Not Reportable 08/30/16 15:52 Platelet Estimate Consistent w auto 08/30/16 15:52 Clumped Platelets Not Reportable 08/30/16 15:52 Plt Clumps, EDTA Not Reportable 08/30/16 15:52 Large Platelets Few 08/30/16 15:52 Giant Platelets Not Reportable 08/30/16 15:52 Platelet Satelliting Not Reportable 08/30/16 15:52 Plt Morphology Comment Not Reportable 08/30/16 15:52 RBC Morphology Normal 08/30/16 15:52 Dimorphic RBCs Not Reportable 08/30/16 15:52 Polychromasia Not Reportable 08/30/16 15:52 Hypochromasia Not Reportable 08/30/16 15:52 Poikilocytosis Not Reportable 08/30/16 15:52 Anisocytosis Not Reportable 08/30/16 15:52 Microcytosis Not Reportable 08/30/16 15:52 Macrocytosis Not Reportable 08/30/16 15:52 Spherocytes Not Reportable 08/30/16 15:52 Pappenheimer Bodies Not Reportable 08/30/16 15:52 Sickle Cells Not Reportable 08/30/16 15:52 Target Cells Not Reportable 08/30/16 15:52 Tear Drop Cells Not Reportable 08/30/16 15:52 Ovalocytes Not Reportable 08/30/16 15:52 Helmet Cells Not Reportable 08/30/16 15:52 Amaro-[place] Bodies Not Reportable 08/30/16 15:52 [place] Rings Not Reportable 08/30/16 15:52 Range Cells Not Reportable 08/30/16 15:52 Bite Cells Not Reportable 08/30/16 15:52 Crenated Cell Not Reportable 08/30/16 15:52 Elliptocytes Not Reportable 08/30/16 15:52 Acanthocytes (Spur) Not Reportable 08/30/16 15:52 Rouleaux Not Reportable 08/30/16 15:52 Hemoglobin C Crystals Not Reportable 08/30/16 15:52 Schistocytes Not Reportable 08/30/16 15:52 Malaria parasites Not Reportable 08/30/16 15:52 ESR 13 mm/Hr (0-20) 08/30/16 17:56 Jose Bodies Not Reportable 08/30/16 15:52 Hem Pathologist Commnt No 08/30/16 15:52 PT 16.0 Sec. (12.2-14.9) H 08/30/16 17:56 INR 1.29 (0.87-1.13) H 08/30/16 17:56 APTT 31.5 Sec. (24.2-36.6) 08/30/16 17:56 Sodium 140 mmol/L (137-145) 09/01/16 07:42 Potassium 4.0 mmol/L (3.6-5.0) 09/01/16 07:42 Chloride 101.0 mmol/L (98-107) 09/01/16 07:42 Carbon Dioxide 26 mmol/L (22-30) 09/01/16 07:42 Anion Gap 17 mmol/L 09/01/16 07:42 BUN 10 mg/dL (9-20) 09/01/16 07:42 Creatinine 0.5 mg/dL (0.8-1.5) L 09/01/16 07:42 Estimated GFR > 60 ml/min 09/01/16 07:42 BUN/Creatinine Ratio 20.00 % 09/01/16 07:42 Glucose 103 mg/dL (75-100) H 09/01/16 07:42 Hemoglobin A1c 5.2 % (4-6) 08/30/16 23:44 Lactic Acid 1.80 mmol/L (0.7-2.0) 08/30/16 17:56 Calcium 8.4 mg/dL (8.4-10.2) 09/01/16 07:42 Total Bilirubin 0.50 mg/dL (0.1-1.2) 08/31/16 07:29 AST 30 units/L (5-40) 08/31/16 07:29 ALT 27 units/L (7-56) 08/31/16 07:29 Alkaline Phosphatase 70 units/L (35-129) 08/31/16 07:29 C-Reactive Protein 30.30 mg/dL (0.00-1.30) H 08/30/16 17:56 Total Protein 6.1 g/dL (6.3-8.2) L 08/31/16 07:29 Albumin 3.1 g/dL (3.9-5) L 08/31/16 07:29 Albumin/Globulin Ratio 1.0 % 08/31/16 07:29 Urine Color [place] (Yellow) 08/30/16 16:05 Urine Turbidity Clear (Clear) 08/30/16 16:05 Urine pH 5.0 (5.0-7.0) 08/30/16 16:05 Ur Specific [place] 1.024 (1.003-1.030) 08/30/16 16:05 Urine Protein 30 mg/dl mg/dL (Negative) 08/30/16 16:05 Urine Glucose (UA) Neg mg/dL (Negative) 08/30/16 16:05 Urine Ketones Neg mg/dL (Negative) 08/30/16 16:05 Urine Blood Neg (Negative) 08/30/16 16:05 Urine Nitrite Neg (Negative) 08/30/16 16:05 Urine Bilirubin Neg (Negative) 08/30/16 16:05 Urine Urobilinogen 2.0 mg/dL (<2.0) 08/30/16 16:05 Ur Leukocyte Esterase Neg (Negative) 08/30/16 16:05 Urine WBC (Auto) 3.0 /HPF (0.0-6.0) 08/30/16 16:05 Urine RBC (Auto) 2.0 /HPF (0.0-6.0) 08/30/16 16:05 U Epithel Cells (Auto) 1.0 /HPF (0-13.0) 08/30/16 16:05 Urine Bacteria (Auto) 1+ /HPF (Negative) 08/30/16 16:05 Urine Mucus 1+ /HPF 08/30/16 16:05
--- NOTE | 2016-09-02 08:50 | Progress Note ---
Assessment and Plan assessment - septic pre-patellar bursitis recommendations - will take to the OR for formal I&D today Subjective Date of service: 09/02/16 Interval history: c/o increasing pain and swelling left knee/thigh, states wound care nurse drained and packed wound recently Objective Vital signs: Vital Signs - 12hr 09/01/16 09/02/16 09/02/16 22:00 00:00 08:00 Temperature 99.2 F 98.9 F Pulse Rate [ 93 H Left Radial] Pulse Rate [ 90 90 Left] Respiratory 20 20 18 Rate Blood Pressure 140/82 137/83 [Left Arm] O2 Sat by Pulse 97 Oximetry Narrative Exam: Left knee - ++ erythema with circumscribed area along medial supracondylar border, tender to palpation, good passive ROM.... - Labs CBC & BMP: 09/01/16 07:42 09/01/16 07:42
[2016-09-02] MEDS: HABITROL TD SCH (09:25)
[2016-09-02] MEDS: PERCOCET 5/325 PO PRN ×2 (09:25→17:54)
[2016-09-02] MEDS: NACL 0.9% 1000 ML 1,000 ML IV SCH ×2 (11:00→17:54)
[2016-09-02] MEDS: PEPCID PO SCH ×2 (13:17→21:29)
[2016-09-02] MEDS: VANCOMYCIN 750 MG in NACL 0.9% 250ML 250 ML IV SCH ×2 (13:23→22:59)
[2016-09-02] MEDS ORDERED: XYLOCAINE MPF 2% ONE (14:40)
[2016-09-02] MEDS ORDERED: ZOFRAN ONE (14:40)
[2016-09-02] MEDS ORDERED: DILAUDID ONE (14:41)
[2016-09-02] MEDS ORDERED: DIPRIVAN 10 MG/ML IV ONE (14:41)
--- NOTE | 2016-09-02 14:43 | Anesthesia Day of Surgery ---
Anesthesia Day of Surgery - Day of Surgery Patient Examined: Yes Patient H&P Reviewed: Yes Patient is NPO: Yes
--- NOTE | 2016-09-02 14:43 | Anesthesia Consultation ---
Anesthesia Consult and Med Hx Date of service: 09/02/16 - Airway Anesthetic Teeth Evaluation: Good ROM Head & Neck: Adequate Mental/Hyoid Distance: Adequate Mallampati Class: Class II Intubation Access Assessment: Probably Good - Pulmonary Exam CTA: Yes - Cardiac Exam Cardiac Exam: RRR - Pre-Operative Health Status ASA Pre-Surgery Classification: ASA2 Proposed Anesthetic Plan: General - Pulmonary Hx Smoking: Yes - Cardiovascular System Hx Heart Murmur: Yes - Central Nervous System Hx Psychiatric Problems: No
[2016-09-02] MEDS ORDERED: NEOSPORIN GU IR ONE (14:58)
[2016-09-02] MEDS ORDERED: VERSED IV NR (15:00)
--- NOTE | 2016-09-02 16:07 | Procedure Note ---
Date of procedure: 09/02/16 Pre-op diagnosis: abscess left patella bursa Post-op diagnosis: same Procedure: Incision and drainage left patella bursa Indications A 61-year-old male with pain and swelling to the left distal thigh as a result of a spider bite patient originally came in for cellulitis placed on IV antibiotics however he developed increasing pain and drainage from the prepatellar area Procedure The patient was brought to the OR placed in the OR table in supine position following induction and intubation by anesthesia the patient's left lower extremity was prepped and draped in the usual sterile manner using digital palpation copious amounts of material was expressed from the wound cultures were taken and sent for aerobic and anaerobic studies. Next the wound was enlarged using a #10 blade the prepatellar bursa was irrigated copiously using normal saline solution care was taken to irrigate the full extent of the prepatellar bursa following this the wound was packed with iodoform gauze routine postoperative dressings were applied the patient tolerated the procedure there were no complications and he was sent to postanesthesia recovery in stable condition Anesthesia: ADRIEL Surgeon: THERON RADFORD Estimated blood loss: minimal Pathology: list (cultures sent for identification and sensitivity) Specimen disposition: to lab Condition: stable Disposition: PACU
--- NOTE | 2016-09-02 16:13 | Post Anesthesia Evaluation ---
- Post Anesthesia Evaluation Patient Participated: Yes Airway Patent: Yes Stable Respiratory Function: Yes Nausea/Vomiting: No Temp > 96.8F: Yes Pain Manageable: Yes Adequeate Hydration: Yes Anesthesia Complications: No Block Receding Appropriately: Not Applicable Patient on Ventilator: No
[2016-09-02] MEDS ORDERED: SODIUM CHLORIDE FLUSH SYRINGE 10 ML IV NR (17:00)
[2016-09-02] MEDS ORDERED: ZOFRAN IV ONE (18:59)
[2016-09-02] MEDS: MORPHINE IV PRN (21:25)
[2016-09-02] MEDS: LOVENOX SUB-Q SCH (21:28)
[2016-09-03] MEDS: UNASYN/NS 3 GM/100 ML 3 GM/100 ML BAG IV SCH ×4 (00:54→18:57)
[2016-09-03] MEDS: VANCOMYCIN 750 MG in NACL 0.9% 250ML 250 ML IV SCH ×3 (06:52→23:29)
[2016-09-03] MEDS: PERCOCET 5/325 PO PRN ×2 (07:03→13:02)
[2016-09-03] MEDS: PEPCID PO SCH ×2 (12:07→22:58)
[2016-09-03] MEDS: HABITROL TD SCH (12:07)
--- NOTE | 2016-09-03 12:36 | Progress Note ---
Assessment and Plan Assessment and plan: 61 year old with no significant past medical hx except for Tobacco abuse, Presents to ER with left knee cellulitis * Prepatellar bursitis -S/P I&D. Continue IV antibiotics. Cultures no growth at this time. wound culture still pending. Other input noted. * Cellulites left knee possible septic bursitis. May have been initiated by insect or spider bite per pt. s * Hypovolemic Hyponatremia. Resolved. Sodium was 132 on admission. Continue IVF secondary to the cellulitis. * Mild Malnutrition. Consult Retail Assistant Manager. BMI only 15.4 * Tobacco abuse: Extensive counselling greater than 15 mins provided with * DVT Prophylaxis with Lovenox subcut * Full code status History Interval history: Patient seen and examined today and in no acute distress. pain much improved post I/D. no new complaints. No adverse event reported by nursing staff. Hospitalist Physical - Physical exam Narrative exam: VITAL SIGNS: Reviewed. GENERAL: The patient appeared well nourished and normally developed. Vital signs as documented. HEAD: No signs of head trauma. EYES: Pupils are equal. Extraocular motions intact. EARS: Hearing grossly intact. MOUTH: Oropharynx is normal. NECK: No adenopathy, no JVD. CHEST: Chest with clear breath sounds bilaterally. No wheezes, rales, or rhonchi. CARDIAC: Regular rate and rhythm. S1 and S2, without murmurs, gallops, or rubs. VASCULAR: No Edema. Peripheral pulses normal and equal in all extremities. ABDOMEN: Soft, without detectable tenderness. No sign of distention. No rebound or guarding, and no masses palpated. Bowel Sounds normal. MUSCULOSKELETAL: Good range of motion of all major joints except left knee. MEAGAN bandage in place. Extremities without clubbing, cyanosis or edema. NEUROLOGIC EXAM: Alert and oriented x 3. No focal sensory or strength deficits. Speech normal. Follows commands. PSYCHIATRIC: Mood normal. SKIN: left knee - Constitutional Vitals: Temp Pulse Resp BP Pulse Ox 97.8 F 85 18 142/81 99 09/03/16 08:10 09/03/16 08:10 09/03/16 08:10 09/03/16 08:10 09/03/16 08:10 Results - Labs CBC & Chem 7: 09/01/16 07:42 09/01/16 07:42 Labs: Laboratory Last Values WBC 14.0 K/mm3 (4.5-11.0) H 09/01/16 07:42 RBC 4.09 M/mm3 (3.65-5.03) 09/01/16 07:42 Hgb 12.8 gm/dl (11.8-15.2) 09/01/16 07:42 Hct 38.0 % (35.5-45.6) 09/01/16 07:42 MCV 93 fl (84-94) 09/01/16 07:42 MCH 31 pg (28-32) 09/01/16 07:42 MCHC 34 % (32-34) 09/01/16 07:42 RDW 14.2 % (13.2-15.2) 09/01/16 07:42 Plt Count 190 K/mm3 (140-440) 09/01/16 07:42 Lymph % (Auto) 5.9 % (13.4-35.0) L 08/31/16 07:29 [place] % (Auto) 7.7 % (0.0-7.3) H 08/31/16 07:29 Eos % (Auto) 0.3 % (0.0-4.3) 08/31/16 07:29 Baso % (Auto) 0.4 % (0.0-1.8) 08/31/16 07:29 Lymph # 0.9 K/mm3 (1.2-5.4) L 08/31/16 07:29 [place] # 1.2 K/mm3 (0.0-0.8) H 08/31/16 07:29 Eos # 0.1 K/mm3 (0.0-0.4) 08/31/16 07:29 Baso # 0.1 K/mm3 (0.0-0.1) 08/31/16 07:29 Add Manual Diff Complete 08/30/16 15:52 Total Counted 100 08/30/16 15:52 Seg Neutrophils % 85.7 % (40.0-70.0) H 08/31/16 07:29 Seg Neuts % (Manual) 87.0 % (40.0-70.0) H 08/30/16 15:52 Band Neutrophils % 0 % 08/30/16 15:52 Lymphocytes % (Manual) 5.0 % (13.4-35.0) L 08/30/16 15:52 Reactive Lymphs % (Man) 0 % 08/30/16 15:52 Monocytes % (Manual) 8.0 % (0.0-7.3) H 08/30/16 15:52 Eosinophils % (Manual) 0 % (0.0-4.3) 08/30/16 15:52 Metamyelocytes % 0 % 08/30/16 15:52 Myelocytes % 0 % 08/30/16 15:52 Promyelocytes % 0 % 08/30/16 15:52 Blast Cells % 0 % 08/30/16 15:52 Nucleated RBC % Not Reportable 08/30/16 15:52 Seg Neutrophils # 13.5 K/mm3 (1.8-7.7) H 08/31/16 07:29 Seg Neutrophils # Man 21.4 K/mm3 (1.8-7.7) H 08/30/16 15:52 Band Neutrophils # 0.0 K/mm3 08/30/16 15:52 Lymphocytes # (Manual) 1.2 K/mm3 (1.2-5.4) 08/30/16 15:52 Abs React Lymphs (Man) 0.0 K/mm3 08/30/16 15:52 Monocytes # (Manual) 2.0 K/mm3 (0.0-0.8) H 08/30/16 15:52 Eosinophils # (Manual) 0.0 K/mm3 (0.0-0.4) 08/30/16 15:52 Basophils # (Manual) 0.0 K/mm3 (0.0-0.1) 08/30/16 15:52 Metamyelocytes # 0.0 K/mm3 08/30/16 15:52 Myelocytes # 0.0 K/mm3 08/30/16 15:52 Promyelocytes # 0.0 K/mm3 08/30/16 15:52 Blast Cells # 0.0 K/mm3 08/30/16 15:52 WBC Morphology Not Reportable 08/30/16 15:52 Hypersegmented Neuts Not Reportable 08/30/16 15:52 Hyposegmented Neuts Not Reportable 08/30/16 15:52 Hypogranular Neuts Not Reportable 08/30/16 15:52 Smudge Cells Not Reportable 08/30/16 15:52 Toxic Granulation Not Reportable 08/30/16 15:52 Toxic Vacuolation Not Reportable 08/30/16 15:52 Dohle Bodies Not Reportable 08/30/16 15:52 Pelger-Huet Anomaly Not Reportable 08/30/16 15:52 Yesy Rods Not Reportable 08/30/16 15:52 Platelet Estimate Consistent w auto 08/30/16 15:52 Clumped Platelets Not Reportable 08/30/16 15:52 Plt Clumps, EDTA Not Reportable 08/30/16 15:52 Large Platelets Few 08/30/16 15:52 Giant Platelets Not Reportable 08/30/16 15:52 Platelet Satelliting Not Reportable 08/30/16 15:52 Plt Morphology Comment Not Reportable 08/30/16 15:52 RBC Morphology Normal 08/30/16 15:52 Dimorphic RBCs Not Reportable 08/30/16 15:52 Polychromasia Not Reportable 08/30/16 15:52 Hypochromasia Not Reportable 08/30/16 15:52 Poikilocytosis Not Reportable 08/30/16 15:52 Anisocytosis Not Reportable 08/30/16 15:52 Microcytosis Not Reportable 08/30/16 15:52 Macrocytosis Not Reportable 08/30/16 15:52 Spherocytes Not Reportable 08/30/16 15:52 Pappenheimer Bodies Not Reportable 08/30/16 15:52 Sickle Cells Not Reportable 08/30/16 15:52 Target Cells Not Reportable 08/30/16 15:52 Tear Drop Cells Not Reportable 08/30/16 15:52 Ovalocytes Not Reportable 08/30/16 15:52 Helmet Cells Not Reportable 08/30/16 15:52 [place] Bodies Not Reportable 08/30/16 15:52 Dahlgren Rings Not Reportable 08/30/16 15:52 Yolanda Cells Not Reportable 08/30/16 15:52 Bite Cells Not Reportable 08/30/16 15:52 Crenated Cell Not Reportable 08/30/16 15:52 Elliptocytes Not Reportable 08/30/16 15:52 Acanthocytes (Spur) Not Reportable 08/30/16 15:52 Rouleaux Not Reportable 08/30/16 15:52 Hemoglobin C Crystals Not Reportable 08/30/16 15:52 Schistocytes Not Reportable 08/30/16 15:52 Malaria parasites Not Reportable 08/30/16 15:52 ESR 13 mm/Hr (0-20) 08/30/16 17:56 Jose Bodies Not Reportable 08/30/16 15:52 Hem Pathologist Commnt No 08/30/16 15:52 PT 16.0 Sec. (12.2-14.9) H 08/30/16 17:56 INR 1.29 (0.87-1.13) H 08/30/16 17:56 APTT 31.5 Sec. (24.2-36.6) 08/30/16 17:56 Sodium 140 mmol/L (137-145) 09/01/16 07:42 Potassium 4.0 mmol/L (3.6-5.0) 09/01/16 07:42 Chloride 101.0 mmol/L (98-107) 09/01/16 07:42 Carbon Dioxide 26 mmol/L (22-30) 09/01/16 07:42 Anion Gap 17 mmol/L 09/01/16 07:42 BUN 10 mg/dL (9-20) 09/01/16 07:42 Creatinine 0.5 mg/dL (0.8-1.5) L 09/01/16 07:42 Estimated GFR > 60 ml/min 09/01/16 07:42 BUN/Creatinine Ratio 20.00 % 09/01/16 07:42 Glucose 103 mg/dL (75-100) H 09/01/16 07:42 Hemoglobin A1c 5.2 % (4-6) 08/30/16 23:44 Lactic Acid 1.80 mmol/L (0.7-2.0) 08/30/16 17:56 Calcium 8.4 mg/dL (8.4-10.2) 09/01/16 07:42 Total Bilirubin 0.50 mg/dL (0.1-1.2) 08/31/16 07:29 AST 30 units/L (5-40) 08/31/16 07:29 ALT 27 units/L (7-56) 08/31/16 07:29 Alkaline Phosphatase 70 units/L (35-129) 08/31/16 07:29 C-Reactive Protein 30.30 mg/dL (0.00-1.30) H 08/30/16 17:56 Total Protein 6.1 g/dL (6.3-8.2) L 08/31/16 07:29 Albumin 3.1 g/dL (3.9-5) L 08/31/16 07:29 Albumin/Globulin Ratio 1.0 % 08/31/16 07:29 Urine Color Mary (Yellow) 08/30/16 16:05 Urine Turbidity Clear (Clear) 08/30/16 16:05 Urine pH 5.0 (5.0-7.0) 08/30/16 16:05 Ur Specific [place] 1.024 (1.003-1.030) 08/30/16 16:05 Urine Protein 30 mg/dl mg/dL (Negative) 08/30/16 16:05 Urine Glucose (UA) Neg mg/dL (Negative) 08/30/16 16:05 Urine Ketones Neg mg/dL (Negative) 08/30/16 16:05 Urine Blood Neg (Negative) 08/30/16 16:05 Urine Nitrite Neg (Negative) 08/30/16 16:05 Urine Bilirubin Neg (Negative) 08/30/16 16:05 Urine Urobilinogen 2.0 mg/dL (<2.0) 08/30/16 16:05 Ur Leukocyte Esterase Neg (Negative) 08/30/16 16:05 Urine WBC (Auto) 3.0 /HPF (0.0-6.0) 08/30/16 16:05 Urine RBC (Auto) 2.0 /HPF (0.0-6.0) 08/30/16 16:05 U Epithel Cells (Auto) 1.0 /HPF (0-13.0) 08/30/16 16:05 Urine Bacteria (Auto) 1+ /HPF (Negative) 08/30/16 16:05 Urine Mucus 1+ /HPF 08/30/16 16:05 Vancomycin Trough 3.1 ug/mL (5.0-20.0) L 09/02/16 11:40
[2016-09-03] MEDS: NACL 0.9% 1000 ML 1,000 ML IV SCH (13:03)
--- NOTE | 2016-09-03 14:37 | Progress Note ---
Assessment and Plan Status post incision and drainage left knee doing well continue IV antibiotics we will pull the packing tomorrow and change dressings Subjective Date of service: 09/03/16 Interval history: states knee feeling much better today able to weight bear now... Objective Vital signs: Vital Signs - 12hr 09/03/16 08:10 Temperature 97.8 F Pulse Rate [ 85 Left Radial] Respiratory 18 Rate Blood Pressure 142/81 [Left Arm] O2 Sat by Pulse 99 Oximetry Narrative Exam: Postop dressing intact decreased erythema noted along with decreased tenderness to palpation - Labs CBC & BMP: 09/01/16 07:42 09/01/16 07:42
[2016-09-03] MEDS: MORPHINE IV PRN (20:10)
[2016-09-03] MEDS: LOVENOX SUB-Q SCH (22:57)
[2016-09-04] MEDS: UNASYN/NS 3 GM/100 ML 3 GM/100 ML BAG IV SCH ×2 (01:24→05:12)
[2016-09-04] MEDS: VANCOMYCIN 750 MG in NACL 0.9% 250ML 250 ML IV SCH (06:03)
[2016-09-04 08:05] LABS: Hematocrit 37.8 % (35.5-45.6); Hemoglobin 12.9 gm/dl (11.8-15.2); Mean Corpuscular HGB Conc 34 % (32-34); Mean Corpuscular Hemoglobin 31 pg (28-32); Mean Corpuscular Volume 92 fl (84-94); Platelet Count 219 K/mm3 (140-440); Red Blood Count 4.12 M/mm3 (3.65-5.03); Red Cell Distribution Width 13.8 % (13.2-15.2)
[2016-09-04 08:16] LABS: Anion Gap 14 mmol/L; Blood Urea Nitrogen 13 mg/dL (9-20); Calcium 8.4 mg/dL (8.4-10.2); Carbon Dioxide 27 mmol/L (22-30); Glucose 95 mg/dL (75-100); Potassium 3.9 mmol/L (3.6-5.0); Sodium 139 mmol/L (137-145)
[2016-09-04] MEDS: MORPHINE IV PRN (08:45)
--- NOTE | 2016-09-04 08:46 | Progress Note ---
Assessment and Plan patient instructed to perform daily dressing change and follow-up in 1 wk in the office after discharge Subjective Date of service: 09/04/16 Interval history: no c/o's noted Objective Vital signs: Vital Signs - 12hr 09/03/16 09/04/16 22:00 00:00 Temperature 97.9 F Pulse Rate [ 83 Left Radial] Respiratory 20 Rate Blood Pressure 141/98 [Left Arm] O2 Sat by Pulse 98 97 Oximetry Narrative Exam: left knee - dressing changed and packing removed, less redness and drainage noted...good active and passive ROM - Labs CBC & BMP: 09/04/16 07:38 09/04/16 07:38 Labs: Abnormal lab results 09/04/16 Range/Units 07:38 Creatinine 0.4 L (0.8-1.5) mg/dL
--- NOTE | 2016-09-04 10:15 | Discharge Summary ---
Providers - Providers Date of Admission: 08/30/16 19:46 Date of discharge: 09/04/16 Attending physician: HARPREET ARANDA MD 08/31/16 07:35 Consult to Wound/ET Nurse [CONS] Routine Reason For Exam: wound eval 09/02/16 16:09 Physical Therapy Evaluation and Treat [CONS] Routine Comment: s/p I&D left knee Reason For Exam: gait training Weight bearing status?: Full wt bearing Assistive devices?: Yes If so list: Walker Primary care physician: ESE TEACHER Hospitalization Reason for admission: left knee infection Condition: Serious Hospital course: 61 year old with no significant past medical hx except for Tobacco abuse, Presents to ER with left knee cellulitis and subsequently noted to have a preparterllar bursitis requiring I/D and was on antibiotics, patient denied drug useage and this was Discharge diagnosis * Prepatellar bursitis . * Cellulites left knee possible septic bursitis * Hypovolemic Hyponatremia. . * Mild Malnutrition. * Tobacco abuse: Disposition: DC/TX HOME UNDER HOME HEALTH Time spent for discharge: 35 mins Core Measure Documentation - Palliative Care Palliative Care/ Comfort Measures: Not Applicable - Core Measures Any of the following diagnoses?: none - VTE Discharge Requirements Deep Vein Thrombosis/Pulmonary Embolism Present on Admission: No Exam - Physical Exam Narrative exam: VITAL SIGNS: Reviewed. GENERAL: The patient appeared well nourished and normally developed. Vital signs as documented. HEAD: No signs of head trauma. EYES: Pupils are equal. Extraocular motions intact. EARS: Hearing grossly intact. MOUTH: Oropharynx is normal. NECK: No adenopathy, no JVD. CHEST: Chest with clear breath sounds bilaterally. No wheezes, rales, or rhonchi. CARDIAC: Regular rate and rhythm. S1 and S2, without murmurs, gallops, or rubs. VASCULAR: No Edema. Peripheral pulses normal and equal in all extremities. ABDOMEN: Soft, without detectable tenderness. No sign of distention. No rebound or guarding, and no masses palpated. Bowel Sounds normal. MUSCULOSKELETAL: Good range of motion of all major joints except left knee. MEAGAN bandage in place. Extremities without clubbing, cyanosis or edema. NEUROLOGIC EXAM: Alert and oriented x 3. No focal sensory or strength deficits. Speech normal. Follows commands. PSYCHIATRIC: Mood normal. SKIN: left knee - Constitutional Vitals: Temp Pulse Resp BP Pulse Ox 98.0 F 78 18 134/81 99 09/04/16 07:00 09/04/16 07:00 09/04/16 07:00 09/04/16 07:00 09/04/16 07:00 Plan Activity: advance as tolerated, fall precautions Diet: regular Special Instructions: smoking cessation, home health RN Follow up with: PRIMARY CAREMD [Primary Care Provider] - 3-5 Days THERON RADFORD MD [Staff Physician] - 7 Days Prescriptions: Clindamycin [Clindamycin CAP] 300 mg PO Q8H #30 cap Doxycycline [Vibramycin CAP] 100 mg PO Q12HR #20 capsule oxyCODONE /ACETAMINOPHEN [Percocet 5/325 mg] 1 tab PO Q6H PRN #14 tablet PRN Reason: Pain, Moderate (4-6) Saccharomyces Boulardii [Florastor] 250 mg PO DAILY #10 capsule
[2016-09-04] MEDS: PEPCID PO SCH (10:32)
[2016-09-04] MEDS ORDERED: VANCOMYCIN 1,250 MG in NACL 0.9% 250ML 250 ML IV SCH (14:00)
[2016-09-04 14:43] VITALS: BP 120/81
== END 2016-09-04 13:30 | disposition home health service (06) | DRG 603 ==
LOC: ED 15:37 → 3A 19:46
PROVIDERS: ADMIT Internal Medicine; ATTEND Internal Medicine
PROC: 0Y9G3ZZ Drainage of Left Knee Region, Percutaneous Approach (ICD-10-PCS; principal; 2016-09-02)
DX: L03.116 Cellulitis of left lower limb (principal); E87.1 Hypo-osmolality and hyponatremia; Z68.1 Body mass index [BMI] 19.9 or less, adult; E44.1 Mild protein-calorie malnutrition; F17.210 Nicotine dependence, cigarettes, uncomplicated; Z88.2 Allergy status to sulfonamides; L02.416 Cutaneous abscess of left lower limb; M70.42 Prepatellar bursitis, left knee
CPT/HCPCS: 36415; 80048; 80053; 80202; 81001; 82140; 83036; 85007; 85025; 85027; 85610; 85652; 85730; 86140; 87040; 87075; 87076; 87116; 87186; 96365; 96367; 96375; J0295; J0692; J1170; J1650; J2250; J2270; J2405; J2704; J3370; J7030; J7050

== ENCOUNTER 2016-10-03 15:26 | Emergency (ER) | payer SELFPAY ==
[2016-10-03] MEDS ORDERED: TRIPLE ANTIBIOTIC TP ONE (20:06)
--- NOTE | 2016-10-03 20:06 | Emergency Department Report ---
ED Extremity Problem HPI - General Chief complaint: Extremity Injury, Lower Stated complaint: SPIDER BITE Time Seen by Provider: 10/03/16 19:48 Source: patient Mode of arrival: Ambulatory Limitations: No Limitations - History of Present Illness Initial comments: Patient came via EMS reported that he is having left knee pain and swelling. Pain is 5 out of 10. He said he was admitted to the hospital last month for cellulitis from spider bite and his entire left lower extremity was swollen and red. He said that he is here to be checked out because he doesn't know if it's related to the infection that he had. He said these have a left knee swelling and denies any redness. Patient has Band-Aid to spider bite site which is healed. Denies any numbness or tingling to extremities. Patient said he was on Percocet for pain when he got discharged from the hospital. Also he said he completed his clindamycin and doxycycline that was ordered after discharge. Denies any fever or chills or nausea or vomiting. No [id number] medication taken per patient MD Complaint: joint swelling, joint paint Onset/Timin -: month(s) Location: left, knee History of Same: Yes -: Yes arthralgia, No fever, No associated dyspnea, No associated chest pain Radiation: none Severity scale (0 -10): 5 Quality: aching Consistency: intermittent Improves with: immobilization, rest Worsens with: weight bearing, walking Associated Symptoms: arthralgias, other (spider bite sites to distal anterior lt thigh). denies: chest pain, shortness of breath, fever, myalgias - Related Data Previous Rx's Medication Instructions Recorded Last Taken Type Clindamycin [Clindamycin CAP] 300 mg PO Q8H #30 cap 09/04/16 Unknown Rx Doxycycline [Vibramycin CAP] 100 mg PO Q12HR #20 capsule 09/04/16 Unknown Rx Saccharomyces Boulardii [Florastor] 250 mg PO DAILY #10 capsule 09/04/16 Unknown Rx oxyCODONE /ACETAMINOPHEN [Percocet 1 tab PO Q6H PRN #14 tablet 09/04/16 Unknown Rx 5/325 mg] Ibuprofen [Motrin] 400 mg PO Q8H PRN #12 tablet 10/03/16 Unknown Rx Allergies Allergy/AdvReac Type Severity Reaction Status Date / Time Sulfa (Sulfonamide Allergy Swelling Verified 10/03/16 17:15 Antibiotics) ED Review of Systems ROS: Stated complaint: SPIDER BITE Other details as noted in HPI Comment: All other systems reviewed and negative Constitutional: denies: chills, fever, malaise, weakness Respiratory: no symptoms reported Cardiovascular: denies: chest pain, palpitations, edema, syncope Gastrointestinal: denies: abdominal pain, nausea, vomiting Musculoskeletal: joint swelling, arthralgia Skin: other (spider bite site) Neurological: denies: headache, weakness, numbness, paresthesias, confusion, abnormal gait, vertigo ED Past Medical Hx - Past Medical History Previous Medical History?: Yes Additional medical history: heart murmur. Cellulitis secondary to spider bite in August 2016 - Surgical History Past Surgical History?: Yes Additional Surgical History: I &D LEFT KNEE - Family History Family history: no significant - Social History Smoking Status: Current Every Day Smoker Substance Use Type: Alcohol - Medications Home Medications: Home Medications Medication Instructions Recorded Confirmed Last Taken Type Clindamycin [Clindamycin CAP] 300 mg PO Q8H #30 cap 09/04/16 Unknown Rx Doxycycline [Vibramycin CAP] 100 mg PO Q12HR #20 capsule 09/04/16 Unknown Rx Saccharomyces Boulardii [Florastor] 250 mg PO DAILY #10 capsule 09/04/16 Unknown Rx oxyCODONE /ACETAMINOPHEN [Percocet 1 tab PO Q6H PRN #14 tablet 09/04/16 Unknown Rx 5/325 mg] Ibuprofen [Motrin] 400 mg PO Q8H PRN #12 tablet 10/03/16 Unknown Rx ED Physical Exam - General Limitations: No Limitations General appearance: alert, in no apparent distress - Head Head exam: Present: atraumatic, normocephalic, normal inspection - Eye Eye exam: Present: normal appearance, PERRL, EOMI. Absent: periorbital swelling , periorbital tenderness Pupils: Present: normal accommodation - ENT ENT exam: Present: normal exam, normal orophraynx, mucous membranes moist - Neck Neck exam: Present: normal inspection, full ROM. Absent: tenderness, meningismus, lymphadenopathy - Respiratory Respiratory exam: Present: normal lung sounds bilaterally. Absent: respiratory distress, chest wall tenderness - Cardiovascular Cardiovascular Exam: Present: regular rate, normal rhythm, normal heart sounds - GI/Abdominal GI/Abdominal exam: Present: soft, normal bowel sounds. Absent: distended, tenderness, guarding, rebound, rigid - Extremities Exam Extremities exam: Present: normal inspection, full ROM - Expanded Lower Extremity Exam Left Hip exam: Present: normal inspection, full ROM. Absent: tenderness, swelling, abrasion, laceration, ecchymosis, deformity, crepidus, dislocation, erythema, external rotation, internal rotation, shortening, pelvic stability Upper Leg exam: Present: normal inspection, full ROM. Absent: tenderness, swelling, abrasion, laceration, ecchymosis, deformity, crepidus, dislocation, erythema Knee exam: Present: normal inspection, full ROM, full knee extension. Absent: tenderness, swelling, abrasion, laceration, ecchymosis, deformity, crepidus, dislocation, erythema, effusion, pain w/ pronation/supination, posterior draw sign, pain/laxity with valgus, pain/laxity with varus Lower Leg exam: Present: normal inspection, full ROM. Absent: tenderness, swelling, abrasion, laceration, ecchymosis, deformity, crepidus, dislocation, erythema, palpable cord, Gary's sign Ankle exam: Present: normal inspection, full ROM. Absent: tenderness, swelling , abrasion, laceration, ecchymosis, deformity, crepidus, dislocation, erythema Foot/Toe exam: Present: normal inspection, full ROM. Absent: tenderness, swelling, abrasion, laceration, ecchymosis, deformity, crepidus, dislocation, erythema, amputation, puncture wound, foreign body, calcaneal tenderness, tenderness at base of 5th metatarsal, nail avulsion, subungual hematoma Neuro vascular tendon exam: Present: no vascular compromise. Absent: pulse deficit, abnormal cap refill, motor deficit, sensory deficit, tendon deficit, extremity cold to touch, pallor, abnormal 2-point discrimination, decreased fine /light touch, foot drop, peroneal nerve deficit, significant pain with passive ROM of distal joint Gait: Positive: observed and normal - Back Exam Back exam: Present: normal inspection, full ROM. Absent: tenderness - Neurological Exam Neurological exam: Present: alert, oriented X3, normal gait, reflexes normal. Absent: motor sensory deficit - Psychiatric Psychiatric exam: Present: normal affect, normal mood - Skin Skin exam: Present: warm, dry, intact, normal color, other (patient with healed scar from spider bites. No signs of infection. Nontender to palpate.). Absent : rash ED Course Vital Signs 10/03/16 17:15 Temperature 97.8 F Pulse Rate 90 Respiratory 20 Rate Blood Pressure 135/90 O2 Sat by Pulse 100 Oximetry - Reevaluation(s) Reevaluation #1: 10/03/16 20:38 Patient requests then spider bite site to be cleansed and some antibiotic ointment to place on the site. I told him that the ear is healed and he doesn' t have any sign of infection but he is insistent that he has some antibiotic for placed the site. Area cleansed with normal saline and Neosporin ointment placed the site. Patient had Band-Aid on area when he came to ER and I told him that he should leave the area open to air as he does not have any open wounds and the ear is healed. ED Medical Decision Making - Medical Decision Making Patient here came via EMS because he said he didn't have any other with transport. He was admitted last month for cellulitis of left lower extremity secondary to spider bite. Patient had I&D and was treated with IV therapy and discharged September 04, 2016. Records reported that he was discharged home in clindamycin and doxycycline orally and oxycodone for pain. Patient is requesting and pain medication. He said he completed his antibiotic therapy. Patient here reported left knee swelling and an 1 and healed spider bite want to be cleansed. Bilateral lower extremity exam is normal and there are no swelling or erythema, ballottement or crepitus to knees. He has no effusion to any joints and no joint deformity. Good color, sensation, movement in temperature to all extremities. Patient wanted to not if he can get some more pain medicine I told him he can go ahead and take Motrin but I cannot renew his hydrocodone as he does not have any injuries. Patient insists then that he gets antibiotic oint to spider bite site therefore it was cleansed with normal saline and Neosporin ointment placed the site. Patient did not follow-up with outpatient as instructed. I instructed him that he needs to follow-up outpatient as previously instructed and he does not have a primary care physician so I told him that he needs to follow-up with [facility] in 3-5 days. Critical care attestation.: If time is entered above; I have spent that time in minutes in the direct care of this critically ill patient, excluding procedure time. ED Disposition Clinical Impression: Arthralgia of left knee Disposition: DC- TO HOME OR SELFCARE Is pt being admited?: No Does the pt Need Aspirin: No Condition: Stable Instructions: Arthralgia (ED), Knee Exercises (GEN), Knee Pain (ED) Additional Instructions: Please follow up with [facility] in 3-5 days as you do not have a primary care physician. Please follow up with orthopedic doctor for chronic knee pain. Prescriptions: Ibuprofen [Motrin] 400 mg PO Q8H PRN #12 tablet PRN Reason: Pain Referrals: [facility] [Outside] - 3-5 Days THERON RADFORD MD [Staff Physician] - 3-5 Days
[2016-10-03] MEDS ORDERED: HYDROGEN PEROXIDE ONE (20:09)
[2016-10-03] MEDS ORDERED: HYDROGEN PEROXIDE TP ONE (20:15)
[2016-10-03 21:10] VITALS: BP 127/81
== END 2016-10-03 21:10 | disposition home or self-care (01) ==
LOC: ED 15:26
DX: M25.562 Pain in left knee (principal); F17.200 Nicotine dependence, unspecified, uncomplicated
CPT/HCPCS: 99283; A6250

== ENCOUNTER 2016-10-05 00:03 | Inpatient (IN) | payer SELFPAY ==
[2016-10-05] MEDS ORDERED: PEPCID IV ONE (01:14)
[2016-10-05] MEDS ORDERED: ZOFRAN IV ONE (01:14)
[2016-10-05] MEDS ORDERED: BENTYL IM ONE (01:14)
[2016-10-05] MEDS ORDERED: NACL 0.9% 1000 ML 1,000 ML IV ONE (01:14)
[2016-10-05 01:45] LABS: Hematocrit 38.8 % (35.5-45.6); Hemoglobin 13.2 gm/dl (11.8-15.2); Mean Corpuscular HGB Conc 34 % (32-34); Mean Corpuscular Hemoglobin 31 pg (28-32); Mean Corpuscular Volume 92 fl (84-94); Platelet Count 148 K/mm3 (140-440); Red Blood Count 4.22 M/mm3 (3.65-5.03); Red Cell Distribution Width 15.2 % (13.2-15.2); White Blood Count 9.2 K/mm3 (4.5-11.0)
[2016-10-05 02:04] LABS: INR 1.18 (0.87-1.13)
[2016-10-05 02:09] LABS: Alanine Aminotransferase 32 units/L (7-56); Albumin 3.5 g/dL (3.9-5); Albumin/Globulin Ratio 1.5 %; Alkaline Phosphatase 75 units/L (35-129); Anion Gap 12 mmol/L; Blood Urea Nitrogen 11 mg/dL (9-20); Calcium 8.5 mg/dL (8.4-10.2); Carbon Dioxide 25 mmol/L (22-30); Chloride 106.4 mmol/L (98-107); Glucose 86 mg/dL (75-100); Potassium 3.6 mmol/L (3.6-5.0); Sodium 140 mmol/L (137-145); Total Protein 5.9 g/dL (6.3-8.2)
[2016-10-05] MEDS ORDERED: MORPHINE IV ONE (03:19)
[2016-10-05] MEDS ORDERED: TORADOL IV ONE (03:19)
[2016-10-05] MEDS ORDERED: NACL 0.9% 500 ML 500 ML IV ONE (03:19)
--- NOTE | 2016-10-05 03:21 | Emergency Department Report ---
ED Chest Pain HPI - General Chief Complaint: Chest Pain Stated Complaint: CHEST PAIN Time Seen by Provider: 10/05/16 01:06 Source: patient, RN notes reviewed, old records reviewed Mode of arrival: Wheelchair Limitations: No Limitations - History of Present Illness Initial Comments: This is a 61-year-old male. He is previously unknown speed. The patient was recently admitted to the hospital for left knee septic bursitis. He presents to the ER today complaining of chest pain. The chest pain is central and left- sided. The patient reports the pain does not radiate to the back, arms or neck. Patient reports that he has shortness of breath and nausea. There is no hemoptysis. There is no hematemesis. There is no bright red blood per rectum. No cocaine use recently. Aspirin use, with the exception of today, the patient took 4 aspirin prior to arrival, but otherwise he has not taken aspirin. No recent cardiac risk stratification. MD Complaint: chest pain -: Gradual Onset: during rest Pain Location: substernal, left chest Severity: mild Quality: tightness Consistency: constant Improves With: rest Worsens With: palpation re: nausea, dyspnea Treatments Prior to Arrival: aspirin Aspirin use within the Past 7 Days: (1) Yes - Related Data On Oral Contraceptives: No Previous Rx's Medication Instructions Recorded Last Taken Type Clindamycin [Clindamycin CAP] 300 mg PO Q8H #30 cap 09/04/16 Unknown Rx Doxycycline [Vibramycin CAP] 100 mg PO Q12HR #20 capsule 09/04/16 Unknown Rx Saccharomyces Boulardii [Florastor] 250 mg PO DAILY #10 capsule 09/04/16 Unknown Rx oxyCODONE /ACETAMINOPHEN [Percocet 1 tab PO Q6H PRN #14 tablet 09/04/16 Unknown Rx 5/325 mg] Ibuprofen [Motrin] 400 mg PO Q8H PRN #12 tablet 10/03/16 Unknown Rx Allergies Allergy/AdvReac Type Severity Reaction Status Date / Time Sulfa (Sulfonamide Allergy Swelling Verified 10/03/16 17:15 Antibiotics) Heart Score - HEART Score History: Moderately suspicious EKG: Non-specific Age: 45-65 Risk factors: 1-2 risk factors Troponin: < normal limit HEART Score: 4 - Critical Actions Critical Actions: 4-6 pts:12-16.6% risk of adverse cardiac event. Should be admitted ED Review of Systems ROS: Stated complaint: CHEST PAIN Other details as noted in HPI Constitutional: malaise Eyes: denies: vision change ENT: denies: epistaxis Respiratory: shortness of breath Cardiovascular: chest pain Gastrointestinal: nausea Genitourinary: as per HPI Musculoskeletal: as per HPI Skin: as per HPI Neurological: as per HPI Psychiatric: as per HPI ED Past Medical Hx - Past Medical History Previous Medical History?: Yes Additional medical history: heart murmur. Cellulitis secondary to spider bite in August 2016 - Surgical History Additional Surgical History: I &D LEFT KNEE - Social History Smoking Status: Current Every Day Smoker - Medications Home Medications: Home Medications Medication Instructions Recorded Confirmed Last Taken Type Clindamycin [Clindamycin CAP] 300 mg PO Q8H #30 cap 09/04/16 Unknown Rx Doxycycline [Vibramycin CAP] 100 mg PO Q12HR #20 capsule 09/04/16 Unknown Rx Saccharomyces Boulardii [Florastor] 250 mg PO DAILY #10 capsule 09/04/16 Unknown Rx oxyCODONE /ACETAMINOPHEN [Percocet 1 tab PO Q6H PRN #14 tablet 09/04/16 Unknown Rx 5/325 mg] Ibuprofen [Motrin] 400 mg PO Q8H PRN #12 tablet 10/03/16 Unknown Rx ED Physical Exam - General Limitations: No Limitations General appearance: alert, in no apparent distress - Head Head exam: Present: atraumatic, normocephalic - Eye Eye exam: Present: normal appearance, EOMI. Absent: nystagmus - ENT ENT exam: Present: normal exam, normal orophraynx, mucous membranes moist, normal external ear exam - Neck Neck exam: Present: normal inspection, full ROM. Absent: tenderness, meningismus - Respiratory Respiratory exam: Present: normal lung sounds bilaterally, chest wall tenderness. Absent: respiratory distress, wheezes, rales, rhonchi, stridor - Cardiovascular Cardiovascular Exam: Present: regular rate, normal rhythm, normal heart sounds. Absent: bradycardia, tachycardia, irregular rhythm, systolic murmur, diastolic murmur, rubs, gallop - GI/Abdominal GI/Abdominal exam: Present: soft, normal bowel sounds. Absent: distended, tenderness, guarding, rebound, rigid, pulsatile mass - Rectal Rectal exam: Present: deferred - Extremities Exam Extremities exam: Present: normal inspection, full ROM, normal capillary refill. Absent: tenderness, pedal edema, joint swelling, calf tenderness - Back Exam Back exam: Present: normal inspection, full ROM. Absent: tenderness, CVA tenderness (R), CVA tenderness (L), muscle spasm, paraspinal tenderness, vertebral tenderness - Neurological Exam Neurological exam: Present: alert, oriented X3, normal gait, other (Extraocular movements intact. Tongue midline. No facial droop. Facial sensation intact to light touch in the V1, V2, V3 distribution bilaterally. 5 and 5 strength in 4 extremities.. Sensation is intact to light touch in 4 extremities.). Absent : motor sensory deficit - Psychiatric Psychiatric exam: Present: normal affect, normal mood - Skin Skin exam: Present: warm, dry, intact, normal color. Absent: rash ED Course Vital Signs 10/05/16 10/05/16 10/05/16 00:29 01:50 02:00 Temperature 98.6 F Pulse Rate 88 75 79 Respiratory 18 19 20 Rate Blood Pressure 152/98 164/97 O2 Sat by Pulse 99 100 Oximetry 10/05/16 10/05/16 10/05/16 02:10 02:20 02:30 Temperature Pulse Rate 85 99 H 92 H Respiratory 20 13 24 Rate Blood Pressure 159/106 149/83 O2 Sat by Pulse 98 98 88 Oximetry 10/05/16 10/05/16 10/05/16 02:40 02:50 03:00 Temperature Pulse Rate 96 H 87 80 Respiratory 15 14 19 Rate Blood Pressure 149/83 149/83 151/97 O2 Sat by Pulse 88 100 100 Oximetry 10/05/16 10/05/16 10/05/16 03:10 03:20 03:30 Temperature Pulse Rate 88 90 84 Respiratory 20 19 15 Rate Blood Pressure 149/83 157/98 157/108 O2 Sat by Pulse 100 99 99 Oximetry 10/05/16 10/05/16 10/05/16 03:40 03:50 04:00 Temperature Pulse Rate 84 85 85 Respiratory 15 19 16 Rate Blood Pressure 151/97 161/105 152/99 O2 Sat by Pulse 100 100 99 Oximetry 10/05/16 10/05/16 10/05/16 04:10 04:20 04:30 Temperature Pulse Rate 89 85 88 Respiratory 16 20 18 Rate Blood Pressure 152/99 151/99 151/99 O2 Sat by Pulse 100 99 Oximetry - Reevaluation(s) Reevaluation #1: 10/05/16 05:32 there is a delay in disposition secondary to a taking a very long time for the CAT scan to be obtained. Care will be transferred to the oncoming morning physician, Dr. Castaneda, at 6 am; he will follow-up on the CT scan , initiate any therapeutic interventions that he feels are appropriate, and contact the hospital team to arrange admission. LELO score - Lelo Score Age > 65: (0) No Aspirin use within the Past 7 Days: (1) Yes 3 or more CAD Risk Factors: (0) No 2 or more Angina events in past 24 hrs: (1) Yes Known CAD with more than 50% Stenosis: (0) No Elevated Cardiac Markers: (0) No ST Deviation Greater than 0.5mm: (0) No LELO Score: 2 ED Medical Decision Making - Lab Data Result diagrams: 10/05/16 01:27 10/05/16 01:27 Vital Signs 10/05/16 10/05/16 10/05/16 00:29 01:50 02:00 Temperature 98.6 F Pulse Rate 88 75 79 Respiratory 18 19 20 Rate Blood Pressure 152/98 164/97 O2 Sat by Pulse 99 100 Oximetry 10/05/16 10/05/16 10/05/16 02:10 02:20 02:30 Temperature Pulse Rate 85 99 H 92 H Respiratory 20 13 24 Rate Blood Pressure 159/106 149/83 O2 Sat by Pulse 98 98 88 Oximetry 10/05/16 10/05/16 10/05/16 02:40 02:50 03:00 Temperature Pulse Rate 96 H 87 80 Respiratory 15 14 19 Rate Blood Pressure 149/83 149/83 151/97 O2 Sat by Pulse 88 100 100 Oximetry 10/05/16 10/05/16 10/05/16 03:10 03:20 03:30 Temperature Pulse Rate 88 90 84 Respiratory 20 19 15 Rate Blood Pressure 149/83 157/98 157/108 O2 Sat by Pulse 100 99 99 Oximetry 10/05/16 10/05/16 10/05/16 03:40 03:50 04:00 Temperature Pulse Rate 84 85 85 Respiratory 15 19 16 Rate Blood Pressure 151/97 161/105 152/99 O2 Sat by Pulse 100 100 99 Oximetry 06/19/17 06/19/17 06/19/17 04:10 04:20 04:30 Temperature Pulse Rate 89 85 88 Respiratory 16 20 18 Rate Blood Pressure 152/99 151/99 151/99 O2 Sat by Pulse 100 99 Oximetry Lab Results 10/05/16 10/05/16 10/05/16 Range/Units 01:27 01:27 01:27 WBC 9.2 (4.5-11.0) K/mm3 RBC 4.22 (3.65-5.03) M/mm3 Hgb 13.2 (11.8-15.2) gm/dl Hct 38.8 (35.5-45.6) % MCV 92 (84-94) fl MCH 31 (28-32) pg MCHC 34 (32-34) % RDW 15.2 (13.2-15.2) % Plt Count 148 (140-440) K/mm3 PT 14.9 (12.2-14.9) Sec. INR 1.18 H (0.87-1.13) Sodium 140 (137-145) mmol/L Potassium 3.6 (3.6-5.0) mmol/L Chloride 106.4 (98-107) mmol/L Carbon Dioxide 25 (22-30) mmol/L Anion Gap 12 mmol/L BUN 11 (9-20) mg/dL Creatinine 0.4 L (0.8-1.5) mg/dL Estimated GFR > 60 ml/min BUN/Creatinine Ratio 27.50 % Glucose 86 (75-100) mg/dL Calcium 8.5 (8.4-10.2) mg/dL Total Bilirubin 0.30 (0.1-1.2) mg/dL AST 37 (5-40) units/L ALT 32 (7-56) units/L Alkaline Phosphatase 75 (35-129) units/L Troponin T < 0.010 (0.00-0.029) ng/mL NT-Pro-B Natriuret Pep 296.4 (0-900) pg/mL Total Protein 5.9 L (6.3-8.2) g/dL Albumin 3.5 L (3.9-5) g/dL Albumin/Globulin Ratio 1.5 % Lipase (13-60) units/L 10/05/16 Range/Units 01:27 WBC (4.5-11.0) K/mm3 RBC (3.65-5.03) M/mm3 Hgb (11.8-15.2) gm/dl Hct (35.5-45.6) % MCV (84-94) fl MCH (28-32) pg MCHC (32-34) % RDW (13.2-15.2) % Plt Count (140-440) K/mm3 PT (12.2-14.9) Sec. INR (0.87-1.13) Sodium (137-145) mmol/L Potassium (3.6-5.0) mmol/L Chloride (98-107) mmol/L Carbon Dioxide (22-30) mmol/L Anion Gap mmol/L BUN (9-20) mg/dL Creatinine (0.8-1.5) mg/dL Estimated GFR ml/min BUN/Creatinine Ratio % Glucose (75-100) mg/dL Calcium (8.4-10.2) mg/dL Total Bilirubin (0.1-1.2) mg/dL AST (5-40) units/L ALT (7-56) units/L Alkaline Phosphatase (35-129) units/L Troponin T (0.00-0.029) ng/mL NT-Pro-B Natriuret Pep 296.1 (0-900) pg/mL Total Protein (6.3-8.2) g/dL Albumin (3.9-5) g/dL Albumin/Globulin Ratio % Lipase 45 (13-60) units/L - EKG Data -: EKG Interpreted by Me EKG shows normal: sinus rhythm Rate: normal - EKG Data 10/05/16 05:10 EKG #1 demonstrates normal sinus, 81 beats per minutes, nonspecific ST abnormality in V2, aVR, nonspecific ST depression in the inferior leads, abnormal EKG, not morphologically consistent with STEMI. EKG #[address] abnormality in the inferior leads, poor R- wave progression, nonspecific ST abnormality, not morphologically consistent with STEMI. - Radiology Data Radiology results: image reviewed interpreted by me: X-ray of the chest demonstrates hyperinflated lungs, no acute disease. - Medical Decision Making Differential diagnosis: Acute coronary syndrome, GERD, gastritis, pneumonia, pulmonary embolus Assessment and plan: 61-year-old male with chest pain, shortness of breath, abnormal EKG, multiple recent hospital admissions. CT scan of the chest is ordered to exclude occult pneumonia and pulmonary embolus. Patient has her to take an aspirin. His EKG is abnormal, the patient requires ACS risk stratification. He will be admitted to the hospital, and I will discuss with the Hospital physician once his CT scan has resulted. Given shortness of breath , clear chest x-ray, multiple hospital admissions, I feel the patient is moderate risk by well's criteria, and therefore not suitable to be risk stratified by d-dimer. Critical care attestation.: If time is entered above; I have spent that time in minutes in the direct care of this critically ill patient, excluding procedure time. ED Disposition Clinical Impression: Chest pain, Abnormal EKG Disposition: [id number] OP ADMIT IP TO THIS HOSP Is pt being admited?: Yes Condition: Good Instructions: Chest Pain (ED) Referrals: PRIMARY CARE, [Primary Care Provider] - 3-5 Days
[2016-10-05] MEDS ORDERED: NACL ONE (03:31)
--- NOTE | 2016-10-05 06:23 | Cat Scan Report ---
FINAL REPORT PROCEDURE: CT ANGIO CHEST TECHNIQUE: Computerized tomographic angiography of the chest was performed after the IV injection of iodinated nonionic contrast including image processing. The image data was postprocessed using 2-dimensional multiplanar reformatted (MPR) and 3-dimensional (MIP and/or volume rendered) techniques. HISTORY: cp sob COMPARISON: No prior studies are available for comparison. FINDINGS: Heart and pericardium: Normal. Thoracic aorta: Normal. Pulmonary vasculature: Normal. Lymph nodes: No enlarged thoracic lymph nodes. Lungs: Mild chronic obstructive pulmonary changes with slight fibrosis. No consolidation, effusion or pneumothorax. The central airway is patent.. Pleural space: No effusion, thickening, or pneumothorax. Musculoskeletal structures: No significant abnormality. Upper abdominal structures: No significant abnormality. IMPRESSION: There is no evidence of pulmonary arterial emboli. COPD with mild fibrosis. No consolidation, effusion or pneumothorax.
--- NOTE | 2016-10-05 07:15 | Admit Criteria Form ---
Admission Criteria Documentation: CHEST PAIN Clinical Indications for Admission to Inpatient Care (Place 'X' for any and all applicable criteria): Admission is indicated for chest pain and ANY ONE of the following(1)(2)(3)(4)(5 ): [ ]I. Angina with acute coronary syndrome (Also use Myocardial Infarction or Angina guideline) [ ]II. Hemodynamic instability [X]III. Angina needing acute intervention as indicated by ALL of the following( 11)(12): [ ]a) Unstable angina is present as indicated by angina that is ANY ONE of the following: [ ]i) New onset [ ]ii) Nocturnal [ ]iii) Prolonged at rest [ ]iv) Progressive [X]b) Angina warrants acute intervention as indicated by ANY ONE of the following: [ ]i) Recurrent angina (e.g, not responding as previously to treatment) [ ]ii) Angina at rest or with low-level activities despite initial medical therapy [ ]iii) New or presumably new ST-segment depression on ECG [ ]iv) Signs or symptoms of heart failure (eg, dyspnea, pulmonary edema) [ ]v) New or worsening mitral regurgitation [ ]vi) Hemodynamic instability [ ]vii) Dangerous arrhythmia (eg, sustained ventricular tachycardia) [ ]viii) History of percutaneous coronary intervention within 6 months [ ]ix) History of coronary artery bypass graft surgery [X]x) LELO risk score of 2 or greater[A] [ ]xi) History of Diabetes(14) [ ]xii) High-risk cardiac ischemia findings on noninvasive testing (e.g, echocardiogram, treadmill testing, nuclear scan) [ ]xiii) Chronic renal insufficiency (ie, estimated GFR less than 60 mL/min/1.732m) [ ]xiv) Left ventricular ejection fraction less than 40% [ ]IV. Evidence of NE (eg, cardiac biomarkers positive, ST-segment elevation on ECG) also use Myocardial Infarction Criteria Form. [ ]V. Pulmonary edema [ ]. Respiratory distress [ ]VII. Chest pain indicative of serious diagnosis other than coronary artery disease (eg, aortic dissection) [ ]VIII. Contraindications and/or Inappropriate clinical situations for Observational Care in patients with Chest Pain, when ANY ONE of the following is required: [ ]a) Patient with risk factor for pulmonary embolism, acute coronary syndrome and myocardial infarction (18) [ ]b) Patient with Pulmonary embolism require an average LOS of 4.3 days, therefore emergency department observation management is inappropriate 18,23 [ ]c) Painful condition/s in the elderly, have the highest rate of recidivism after emergency department observation management (10.8%) 20,21,22 [ ]d) Elevated cardiac biomarker requires intensive and exhaustive care (19) [ ]IX. General contraindications and/or Inappropriate clinical situations for Observational Care in patients with Chest Pain, when ANY ONE of the following is required: [ ]a) Prediction of prolongation of LOS based on ANY ONE of the following may be considered as a contraindication for observational care 2, 3, 4, 5, 6, 7, 8, 9, 10, 11 [ ]i) Age > 65 yrs. [ ]ii) Patient arriving by ambulance [ ]iii) Patient with high acuity [ ]iv) Patient requiring vital sign monitoring [ ]v) Patient on IV medication [ ]b) Systolic blood pressures 180mmHg 3,12 [ ]c) Patient with altered mental status including delirium and other alteration of consciousness, (3) [ ]d) Patient whose discharge disposition will be to a [facility] home or rehabilitation home should not be managed in Emergency Department Observation Unit. CMS rule requires 3 days hospital stay before such placement. 3,13 [ ]e) Patient with failure to thrive due to broad array of etiologies 3,16,17 [ ]f) Inability to ambulate 3,14 Extended stay beyond goal length of stay may be needed for (1)(28): [ ]a) Specific condition diagnosed after evaluation (eg, pulmonary embolism, aortic dissection) [ ]b) Unstable angina [ ]c) Continued suspicion of acute coronary syndrome with inability to complete needed cardiac evaluation (eg, patient clinically unable to undergo stress testing) [ ]d) Myocardial infarction (Contents from ANGINA and CHEST PAIN clinical indications for admission to inpatient care have been integrated in this form) The original [facility] content created by [employer] has been revised. The portions of the content which have been revised are identified through the use of italic text or in bold, and [employer] [facility] [employer] has neither reviewed nor approved the modified material. All other unmodified content is copyright [facility]. Please see references footnoted in the original [facility] edition 2016 Admission Criteria Met: Yes
--- NOTE | 2016-10-05 07:54 | Emergency Department Report ---
Blank Doc - Documentation Documentation: CTA of the chest is negative for pulmonary embolism. I spoke with the hospitalist who will admit the patient for further chest pain evaluation.
[2016-10-05] MEDS ORDERED: SODIUM CHLORIDE FLUSH SYRINGE 10 ML IV PRN (08:57)
[2016-10-05] MEDS ORDERED: HABITROL TD ONE (08:57)
[2016-10-05] MEDS ORDERED: TYLENOL PO PRN (08:58)
[2016-10-05] MEDS ORDERED: DULCOLAX PR PRN (08:58)
[2016-10-05] MEDS ORDERED: MILK OF MAGNESIA PO PRN (08:58)
[2016-10-05] MEDS ORDERED: ZOFRAN IV PRN (08:58)
--- NOTE | 2016-10-05 09:06 | History and Physical Report ---
History of Present Illness Date of examination: 10/05/16 Date of admission: 10/05/16 07:54 Chief complaint: Chest pains History of present illness: A 61-year-old male presented to the ED with complaints of chest pain and shortness of breath. Patient reported his symptoms started last night 10: 30 PM with tightness and sharp pain 9 of 10 on a scale of 0/10 to the mid sternal n left chest wall that does not radiate. Patient stated pain worsened this morning and called EMS. Patient denied fever, headache, chills, nausea, vomiting, diarrhea, cough, sputum. Patient denies significant past medical history except for left knee left knee surgery and current smoker. Past History Past Medical History: No medical history, other (Left Patellar Bursitis) Past Surgical History: Other (Left Knee repair 08/2016) Social history: , lives with family, smoking (1/2 pack per day, x30+ years), full code. denies: alcohol abuse, prescription drug abuse, IV drug use Family history: CAD, hypertension Medications and Allergies Allergies Allergy/AdvReac Type Severity Reaction Status Date / Time Sulfa (Sulfonamide Allergy Swelling Verified 10/03/16 17:15 Antibiotics) Home Medications Medication Instructions Recorded Confirmed Last Taken Type ALBUTEROL Inhaler [ProAir HFA 2 puff IH QID PRN 30 Days 10/05/16 Unknown Rx Inhaler] traMADol [Ultram] 50 mg PO Q6HR PRN #20 tablet 10/05/16 Unknown Rx Active Meds: Active Medications Acetaminophen (Tylenol) 650 mg PO Q4H PRN PRN Reason: Pain MILD(1-3)/Fever >100.5/PATTERSON Bisacodyl (Dulcolax) 10 mg NH QDAY PRN PRN Reason: Constipation unrelieved by MOM Magnesium Hydroxide (Milk Of Magnesia) 30 ml PO Q4H PRN PRN Reason: Constipation Nicotine (Habitrol) 14 mg TD ONCE ONE Stop: 10/05/16 08:58 Ondansetron HCl (Zofran) 4 mg IV Q8H PRN PRN Reason: Nausea And Vomiting Sodium Chloride (Sodium Chloride Flush Syringe 10 Ml) 10 ml IV PRN PRN PRN Reason: LINE FLUSH Review of Systems Constitutional: no weight loss, no weight gain, no fever, no chills, no sweats Ears, nose, mouth and throat: no nasal congestion, no nasal discharge Cardiovascular: chest pain, no palpitations, no syncope, no lightheadedness, no shortness of breath Respiratory: shortness of breath, dyspnea on exertion, no cough with sputum Gastrointestinal: no abdominal pain, no nausea, no vomiting, no diarrhea, no constipation Genitourinary Male: no dysuria, no hematuria Rectal: no incontinence Musculoskeletal: no shooting arm pain, no arm numbness/tingling, no low back pain Integumentary: no rash, no sores, no wounds Neurological: no head injury, no seizures, no syncope, no headaches Psychiatric: no anxiety, no suicidal ideation, no depression Endocrine: no fatigue Exam - Constitutional Vitals: Temp Pulse Resp BP Pulse Ox 97.9 F 79 16 146/95 100 10/05/16 07:33 10/05/16 07:33 10/05/16 07:33 10/05/16 07:33 10/05/16 07:33 General appearance: Present: no acute distress, well-nourished - EENT Eyes: Present: PERRL ENT: hearing intact, clear oral mucosa - Neck Neck: Present: supple, normal ROM - Respiratory Respiratory effort: normal Respiratory: bilateral: CTA - Cardiovascular Rhythm: regular Heart Sounds: Present: S1 & S2. Absent: rub, click - Extremities Extremities: pulses symmetrical, No edema Peripheral Pulses: within normal limits - Abdominal General gastrointestinal: Present: soft, non-tender, non-distended, normal bowel sounds Male genitourinary: Present: normal - Integumentary Integumentary: Present: clear, warm, dry - Musculoskeletal Musculoskeletal: gait normal, strength equal bilaterally - Psychiatric Psychiatric: appropriate mood/affect, intact judgment & insight - Neurologic Neurologic: CNII-XII intact, moves all extremities - Allied Health Allied health notes reviewed: nursing Results - Labs CBC & Chem 7: 10/05/16 01:27 10/05/16 01:27 Labs: Laboratory Last Values WBC 9.2 K/mm3 (4.5-11.0) 10/05/16 01:27 RBC 4.22 M/mm3 (3.65-5.03) 10/05/16 01:27 Hgb 13.2 gm/dl (11.8-15.2) 10/05/16 01:27 Hct 38.8 % (35.5-45.6) 10/05/16 01:27 MCV 92 fl (84-94) 10/05/16 01:27 MCH 31 pg (28-32) 10/05/16 01:27 MCHC 34 % (32-34) 10/05/16 01:27 RDW 15.2 % (13.2-15.2) 10/05/16 01:27 Plt Count 148 K/mm3 (140-440) 10/05/16 01:27 PT 14.9 Sec. (12.2-14.9) 10/05/16 01:27 INR 1.18 (0.87-1.13) H 10/05/16 01:27 Sodium 140 mmol/L (137-145) 10/05/16 01:27 Potassium 3.6 mmol/L (3.6-5.0) 10/05/16 01:27 Chloride 106.4 mmol/L (98-107) 10/05/16 01:27 Carbon Dioxide 25 mmol/L (22-30) 10/05/16 01:27 Anion Gap 12 mmol/L 10/05/16 01:27 BUN 11 mg/dL (9-20) 10/05/16 01:27 Creatinine 0.4 mg/dL (0.8-1.5) L 10/05/16 01:27 Estimated GFR > 60 ml/min 10/05/16 01:27 BUN/Creatinine Ratio 27.50 % 10/05/16 01:27 Glucose 86 mg/dL (75-100) 10/05/16 01:27 Calcium 8.5 mg/dL (8.4-10.2) 10/05/16 01:27 Total Bilirubin 0.30 mg/dL (0.1-1.2) 10/05/16 01:27 AST 37 units/L (5-40) 10/05/16 01:27 ALT 32 units/L (7-56) 10/05/16 01:27 Alkaline Phosphatase 75 units/L (35-129) 10/05/16 01:27 Troponin T < 0.010 ng/mL (0.00-0.029) 10/05/16 01:27 NT-Pro-B Natriuret Pep 296.1 pg/mL (0-900) 10/05/16 01:27 Total Protein 5.9 g/dL (6.3-8.2) L 10/05/16 01:27 Albumin 3.5 g/dL (3.9-5) L 10/05/16 01:27 Albumin/Globulin Ratio 1.5 % 10/05/16 01:27 Lipase 45 units/L (13-60) 10/05/16 01:27 - Imaging and Cardiology EKG: image reviewed (showed abnormal changes. No ischemic) Chest x-ray: image reviewed (shows chronic COPD with mild fibrosis. No PE noted ) Assessment and Plan Assessment and plan: A 61-year-old male presented to the ED with complaints of chest pain and shortness of breath. Patient reported his symptoms started last night 10: 30 PM with tightness and sharp pain 9 of 10 on a scale of 0/10 to the mid sternal n left chest wall that does not radiate. Patient stated pain worsened this morning and called EMS. Patient denied fever, headache, chills, nausea, vomiting, diarrhea, cough, sputum. Patient denies significant past medical history except for left knee left knee surgery and current smoker. On exam, patient was alert and oriented 3, ambulatory without distress. Pt complained of chest tightness and pressure. Patient had clear breath sounds, no dependent edema noted. Patient denied abdominal pain. -Chest pain- EKG, chest x-ray, chest CTA obtained in the ED, serial cardiac enzymes, stress test ordered, consulted cardiology, admit patient to telemetry -Acute on chronic COPD- EKG and chest x-ray obtained in the ED, oxygen supplement when necessary to keep O2 sat greater than 90%, nebulizer treatments ordered -Tobacco abuse-nicotine patch ordered, counseled patient on smoking cessation, 15 minutes spent on counseling. -DVT prophylaxis-Lovenox ordered Advance Directives: No (Full Code) VTE prophylaxis?: Chemical Plan of care discussed with patient/family: Yes
--- NOTE | 2016-10-05 09:30 | XRay Report ---
AP chest: Chest pain. Appear hyperinflated with mild increased interstitial markings. No nodule or infiltrate identified. No effusion. Normal heart size with no vascular congestion. No prior exam for comparison. Impression: Chronic lung changes/COPD.
[2016-10-05 10:11] LABS: Creatine Kinase MB 2.9 ng/mL (0.0-4.0)
[2016-10-05 10:12] LABS: Creatine Kinase 43 units/L (55-170)
[2016-10-05] MEDS ORDERED: LEXISCAN IV ONE (11:04)
[2016-10-05] MEDS ORDERED: LOVENOX SUB-Q ONE (13:00)
[2016-10-05] MEDS ORDERED: PROVENTIL IH SCH (14:00)
[2016-10-05 15:51] LABS: Creatine Kinase MB 2.6 ng/mL (0.0-4.0)
[2016-10-05 15:52] LABS: Creatine Kinase 40 units/L (55-170)
[2016-10-05 16:48] VITALS: BP 131/83
--- NOTE | 2016-10-05 18:20 | Discharge Summary ---
Providers - Providers Date of Admission: 10/05/16 07:54 Date of discharge: 10/05/16 Attending physician: STEFAN HARRIS MD 10/05/16 Consult to Cardiac Rehabilitation [CONS] Routine Reason For Exam: Phase I Primary care physician: [employer] Hospitalization Reason for admission: chest pain Condition: Good Hospital course: A 61-year-old male presented to the ED with complaints of chest pain and shortness of breath. Patient reported his symptoms started last night 10: 30 PM with tightness and sharp pain 9 of 10 on a scale of 0/10 to the mid sternal n left chest wall that does not radiate. Patient stated pain worsened this morning and called EMS. Patient denied fever, headache, chills, nausea, vomiting, diarrhea, cough, sputum. Patient denies significant past medical history except for left knee left knee surgery and current smoker. On exam, patient was alert and oriented 3, ambulatory without distress. Pt complained of chest tightness and pressure. Patient had clear breath sounds, no dependent edema noted. Patient denied abdominal pain. Patient on admission had CT chest which showed fibrosis. A stress test was done which was normal. I did discuss this extensively with this patient about need to quit tobacco use. On physical exam the patient was reproducible on the left substernal chest area. He denies any fall or trauma or heavy lifting recently. He did although stated that he's been having some persistent cough nonproductive. He denies any rhinorrhea or fever. I have also discussed and recommended age appropriate colonoscopy. Discharge diagnosis -Atypical chest pain likely costochondritis -Acute on chronic respiratory failure -COPD exacerbation -Tobacco abuse -Mild protein calorie malnutrition Disposition: TO HOME OR SELFCARE Time spent for discharge: 35 mins Core Measure Documentation - Palliative Care Palliative Care/ Comfort Measures: Not Applicable - Core Measures Any of the following diagnoses?: none - VTE Discharge Requirements Deep Vein Thrombosis/Pulmonary Embolism Present on Admission: No Exam - Physical Exam Narrative exam: VITAL SIGNS: Reviewed. GENERAL: The patient appeared in no acute distress. Vital signs as documented. HEAD: No signs of head trauma, marked temporal wasting. EYES: Pupils are equal. Extraocular motions intact. EARS: Hearing grossly intact. MOUTH: Oropharynx is normal. NECK: No adenopathy, no JVD. CHEST: Chest with clear breath sounds bilaterally. No wheezes, rales, or rhonchi. CARDIAC: Regular rate and rhythm. S1 and S2, without murmurs, gallops, or rubs. VASCULAR: No Edema. Peripheral pulses normal and equal in all extremities. ABDOMEN: Soft, without detectable tenderness. No sign of distention. No rebound or guarding, and no masses palpated. Bowel Sounds normal. MUSCULOSKELETAL: Reproducible left substernal chest wall tenderness. Good range of motion of all major joints. Extremities without clubbing, cyanosis or edema. NEUROLOGIC EXAM: Alert and oriented x 3. No focal sensory or strength deficits. Speech normal. Follows commands. PSYCHIATRIC: Mood normal. SKIN: No rash or lesions. - Constitutional Vitals: Temp Pulse Resp BP Pulse Ox 98.2 F 88 20 131/83 100 10/05/16 14:45 10/05/16 14:48 10/05/16 14:48 10/05/16 14:45 10/05/16 13:00 Plan Activity: advance as tolerated, fall precautions Diet: low fat Special Instructions: smoking cessation Follow up with: PRIMARY CARE, [Primary Care Provider] - 3-5 Days Prescriptions: ALBUTEROL Inhaler [ProAir HFA Inhaler] 2 puff IH QID PRN 30 Days PRN Reason: Shortness Of Breath traMADol [Ultram] 50 mg PO Q6HR PRN #20 tablet PRN Reason: Pain
[2016-10-05] MEDS ORDERED: PULMICORT IH SCH (20:00)
--- NOTE | 2016-10-06 02:44 | Treadmill Report ---
THALLIUM STRESS TEST LEFT VENTRICLE: Left ventricular chamber size is within normal spread. Perfusion study demonstrates homogeneous uptake of the tracer in all segments, no significant perfusion defects identified. Gated analysis demonstrates normal left ventricular systolic function, ejection fraction 68%. CONCLUSION: Normal myocardial perfusion study. JOB# [id number] CA/NTS
== END 2016-10-05 19:39 | disposition home or self-care (01) | DRG 205 ==
LOC: ED 00:03 → 4A 07:54
PROVIDERS: ADMIT Internal Medicine; ATTEND Internal Medicine
DX: M94.0 Chondrocostal junction syndrome [Tietze] (principal); J96.20 Acute and chronic respiratory failure, unspecified whether with hypoxia or hypercapnia; E44.1 Mild protein-calorie malnutrition; J44.1 Chronic obstructive pulmonary disease with (acute) exacerbation; R94.31 Abnormal electrocardiogram [ECG] [EKG]; F17.200 Nicotine dependence, unspecified, uncomplicated; Z68.32 Body mass index [BMI] 32.0-32.9, adult; Z88.2 Allergy status to sulfonamides; Z82.49 Family history of ischemic heart disease and other diseases of the circulatory system
CPT/HCPCS: 36415; 71010; 71275; 78452; 80053; 82550; 82553; 83690; 83880; 84484; 85027; 85610; 93005; 93010; 93017; 94640; 99406; A9502; J1885; J2270; J2785; Q9967

== ENCOUNTER 2019-05-09 01:31 | Emergency (ER) | payer SELFPAY ==
[2019-05-09 02:01] VITALS: BP 149/91
[2019-05-09 03:02] LABS: Basophils # (Auto) 0.1 K/mm3 (0.0-0.1); Basophils % (Auto) 0.8 % (0.0-1.8); Eosinophils # (Auto) 0.2 K/mm3 (0.0-0.4); Eosinophils % (Auto) 2.7 % (0.0-4.3); Hematocrit 40.1 % (35.5-45.6); Hemoglobin 13.9 gm/dl (11.8-15.2); Lymphocytes # (Auto) 1.3 K/mm3 (1.2-5.4); Lymphocytes % (Auto) 14.6 % (13.4-35.0); Mean Corpuscular HGB Conc 35 % (32-34); Mean Corpuscular Volume 92 fl (84-94); Monocytes # (Auto) 0.8 K/mm3 (0.0-0.8); Monocytes % (Auto) 8.9 % (0.0-7.3); Platelet Count 270 K/mm3 (140-440); Red Blood Count 4.38 M/mm3 (3.65-5.03); Red Cell Distribution Width 14.4 % (13.2-15.2)
[2019-05-09 03:18] LABS: Bacteria,Urine 1+ /HPF (Negative); Bilirubin,Urine NEG (Negative); Blood,Urine SM (Negative); Color,Urine Yellow (Yellow); Protein,Urine <15 mg/dL mg/dL (Negative); Urobilinogen,Urine < 2.0 mg/dL (<2.0)
[2019-05-09 03:26] LABS: BUN/Creatinine Ratio 23; Blood Urea Nitrogen 14 mg/dL (9-20); Calcium 9.2 mg/dL (8.4-10.2); Hemolysis Index 3
[2019-05-09 03:35] LABS: Benzodiazepines Screen,Urine PRESUMPTIVE NEGATIVE; Cannabinoid Screen,Urine PRESUMPTIVE NEGATIVE; Cocaine Screen,Urine PRESUMPTIVE NEGATIVE; Methadone Screen,Urine PRESUMPTIVE NEGATIVE; Opiate Screen,Urine PRESUMPTIVE NEGATIVE
[2019-05-09 07:25] LABS: Amphetamine Screen,Urine PRESUMPTIVE POSITIVE
== END 2019-05-09 07:54 | disposition left against medical advice (07) ==
LOC: ED 01:31
DX: R45.851 Suicidal ideations (principal); Z53.21 Procedure and treatment not carried out due to patient leaving prior to being seen by health care provider
CPT/HCPCS: 36415; 80048; 80307; 80320; 81001; 85025; G0480